=== PATIENT | female | born 1935 | race Caucasian/White ===

== ENCOUNTER → 2016-08-14 | Day surgery (SDC) | payer MEDICARE ==
[~2016-08-14] VITALS: Ht 157.5 cm; Wt 88.5 kg
[~2016-08-14] MED LIST: *RESP: ALBUTEROL 2.5 MG/3 ML NEB (PRN) PERIprocedural Use ONLY NEB ONE; AMLO5TAB2 PO; CHLORHEXIDINE GLUCONATE 2 % 1 PACK (2 CLOTHS) TOPICAL PRN; DO NOT ADM ANY ANTICOAGULANT DRUGS PRN; FAMOTIDINE 20 MG/2 ML VIAL ONE; HYDR25TA5 PO; INSULIN HUMAN REGULAR 1,000 UNITS/10 ML VIAL SQ PRN; LACTATED RINGER'S 1000 ML IV PRN; LIDOCAINE HCL 2% 50 ML VIAL ONE; LIDOCAINE VISCOUS 2% SOLN 15 ML UDC ONE; LOVA20TA PO; METOPROLOL TARTRATE 25 MG TAB PO PRN; ONDANSETRON HCL 4 MG/2 ML VIAL IV PUSH ONE; PHENYLEPH/NS 1000 MCG/10 ML SYR IV ONE; POVIDONE IODINE 5% (ANTISEPSIS KIT) 4 APPLICATIONS EACH NARE PRN; PROPOFOL 200 MG/20 ML AMP IV ONE; RESP: ALBUTEROL 2.5 MG/3 ML NEB (PRN) NEB; RESP: ALBUTEROL 2.5 MG/3 ML NEB (SCH) INH ONE; RESP: ALBUTEROL 2.5 MG/IPRATROPIUM 0.5 MG NEB (SCH) ONE; RESP: LIDOCAINE HCL 4% PF 5 ML NEB NEB ONE; RESP: LIDOCAINE HCL 4% PF 5 ML NEB ONE; SODIUM CHLORID 0.9% 500 ML IV PRN
[2016-08-14 09:53] VITALS: BP 173/90; PULSE 90; RESP 20; TEMP 98.4; O2SAT 92
--- NOTE | 2016-08-14 11:39 | MH ---
cc: PO GRANADOS JEFFREY DATE OF ADMISSION: 08/14/2016 CHIEF COMPLAINT: Persistent left upper lobe infiltrate. HISTORY OF PRESENT ILLNESS: This is an 81-year-old white female who has had a history for recurrent bronchitis and a persistent cough for three to four weeks associated with fever and malaise. He was initially treated with two courses of antibiotics with no significant relief. Subsequently she had was sent for a chest x-ray followed by a CT scan of the chest which was done on July 09, 2016. The CT chest demonstrated a 5.4 x 4 cm mass-like consolidation in the left upper lobe without associated adenopathy. There is an air bronchogram with suggestion of pneumonia but could not exclude malignancy. There was also had a 9 mm nodule in the superior segment of the right lower lobe and an 8 mm nodule in the left upper lobe as well. The patient states the congestion is persistent. She is not having any hemoptysis. She denied any night sweats but did lose some weight recently and she has had no reflux, nausea or vomiting. PAST MEDICAL HISTORY: 1. Hyperlipidemia. 2. Hypertension. 3. Arthritis of her extremities. 4. She has a history for colonoscopy and polypectomy. 5. History of diverticulosis. 6. History of bilateral carpal tunnel release more than 15 years ago. HABITS: The patient smoked one-pack per day for 15 years and then quit. Does not drink any alcohol. FAMILY HISTORY: Noncontributory. ALLERGIES: 1. THE PATIENT HAS ANGIOEDEMA FROM LISINOPRIL. 2. HIVES FROM BLACK COHOSH. MEDICATIONS: Her medications include: 1. Lovastatin 20 milligrams daily. 2. Amlodipine 5 milligrams daily. 3. Hydrochlorothiazide 25 milligrams a day. 4. A decongestant as needed. 5. Recently completed a course of Levaquin. REVIEW OF SYSTEMS: The patient is overweight. SHE has had some fatigue, fever and weight loss. No cataracts or glaucoma. No vertigo, hoarseness, no nosebleeds or urinary symptoms of frequency. No hives or eczema. She has wheezing, cough, shortness of breath. She has reflux symptoms. No diarrhea or constipation. Denies chest and jaw pain. No palpitations or leg swelling. She has some anxiety attacks and occasional headaches. No seizures. She has joint pains and muscle stiffness. Thee is easy bruising. Denies memory loss and numbness. She does have some skin rash. The other system review is negative. PHYSICAL EXAMINATION: GENERAL: This is a mildly overweight elderly female who is alert, anxious and mildly dyspneic at rest. VITAL SIGNS: Blood pressure is 138/80, pulse is 85, respirations 20, temperature 98, weight is 195, oxygen saturation is 90. HEAD, EYES, EARS, NOSE, THROAT: Head normocephalic. The pupils are reactive and equal. Tongue is moist. Throat is mildly injected. Ears have no inflammation. NECK: The neck is supple. No venous distention. Trachea is midline. CHEST: Distant breath sounds with wheezes throughout both lung rubio. HEART: The heart sounds are irregular. S1 and S2. No murmur. ABDOMEN: Abdomen is soft and benign. No masses. No organomegaly or tenderness. The bowel sounds are active. EXTREMITIES: Varicosities and minimal edema. Decreased peripheral pulses. NEUROLOGIC: Reflexes are 1+ with no gross motor deficits. Cranial nerves are grossly intact. RECTAL: Rectal exam is deferred. SKIN: No lesions are noted. IMPRESSION: 1. Persistent left upper lobe lung infiltrates, rule out obstructive pneumonitis versus neoplastic disease 2. He has COPD with chronic bronchitis. 3. Hypertension. 4. Hyperlipidemia. PLAN: The patient was advised to have a bronchoscopy to evaluate the left upper lobe and also advised to continue with the antibiotic therapy. She also was placed on a Ventolin HFA inhaler 2 puffs four times a day. She will be reevaluated after the bronchoscopy is completed at [facility]. The procedure and the potential risks of bleeding, pneumothorax, respiratory failure were all explained. Thank you for this consultation. MD TAMARA Funez/LALITHA /5:57 PM /11:36 AM
--- NOTE | 2016-08-14 12:00 | EKG ---
Date Performed: 08/14/2016 Time Performed: 10:16:07 PTAGE: 81 years EKG: BASELINE ARTIFACT PRESENT. ECTOPIC ATRIAL RHYTHM Versus Sinus rhythm with artifact ABNORMAL RHYTHM ECG Probably no significant change PREVIOUS TRACING : 04/09/2015 09.30 DOCTOR: Alejandro Briones Interpretating Date/Time 08/14/2016 11:58:51
[2016-08-14] MEDS: EPINEPHrine HCL (1:1000) 1 MG/ML VIAL ONE ×2 (12:26→12:31)
[2016-08-14] MEDS: SODIUM CHLORIDE 0.9% 20 ML VIAL ONE ×2 (12:27→12:31)
--- NOTE | 2016-08-14 13:46 | RADRPT ---
EXAM DATE/TIME: 08/14/2016 13:07 [facility] COMPARISON: No previous studies available for comparison. INDICATIONS : Shortness of breath. MEDICAL HISTORY : Hypertension. SURGICAL HISTORY : Hysterectomy. ENCOUNTER: Initial ACUITY: 1 day PAIN SCORE: 0/10 LOCATION: Bilateral chest FINDINGS: There are consolidative changes about the left hilum and minimal opacity left base. Minimal parenchy mal changes are seen on the right. There is no pneumothorax. CONCLUSION: Negative for pneumothorax. Devin Gonzalez MD FACR on August 14, 2016 at 13:42 Board Certified Radiologist. This report was verified electronically.
[2016-08-14 14:48] VITALS: BP 152/69; PULSE 97; RESP 20; TEMP 99; O2SAT 93
--- NOTE | 2016-08-15 20:09 | MP ---
cc: Alecia BLAIR M.D., JEFFREY D. DO DATE OF SURGERY 08/15/16 PROCEDURE Fiberoptic bronchoscopy with brushings, washings and lavage. PREOPERATIVE DIAGNOSIS Persistent left lung infiltrate. POSTOPERATIVE DIAGNOSIS Persistent left lung infiltrate. ANESTHESIA General SURGEON Dr. Jenifer Blair PROCEDURE AND FINDINGS The patient was intubated under general anesthesia following which the Olympus IT 180 bronchoscope was used to visualize bronchi. The scope was advanced through the endotracheal tube into the trachea. Trachea and felipe appeared normal. The scope was then advanced into the right mainstem and right upper lobe segmental bronchi. The bronchi demonstrated no gross endobronchial lesions. Next, the right middle and lower lobe segmental bronchi were visualized. These bronchi demonstrated mucoid secretions and mild endobronchitis but no endobronchial lesions were seen. Next, the left mainstem and left upper lobe segmental bronchi were visualized. These bronchi demonstrated no gross endobronchial lesions. There were mucoid secretions and mild endobronchitis. The left upper lobe with mucosal edema. Saline washings were done from here. Brushings were done for micro and cytology. There was no significant bleeding observed. Following this, the scope was advanced into the left lower lobe segmental bronchi which demonstrated no gross endobronchial lesions. Saline washings were done. The procedure was then terminated. The patient tolerated the procedure well. MD TAMARA Funez/ /12:50 PM /8:04 PM
== END | disposition home or self-care (01) ==
LOC: HSDC 08:50
DX: R91.8 Other nonspecific abnormal finding of lung field (principal); J42 Unspecified chronic bronchitis; I10 Essential (primary) hypertension; R06.02 Shortness of breath; E78.5 Hyperlipidemia, unspecified; M19.042 Primary osteoarthritis, left hand; M19.041 Primary osteoarthritis, right hand; Z87.891 Personal history of nicotine dependence; Z01.818 Encounter for other preprocedural examination
CPT/HCPCS: 00520; 31623; 71010; 87015; 87070; 87071; 87102; 87116; 87205; 87206; 88112; 88305; 88312; 93005; 94640; 94664; J0171; J2370; J2405; J7120; J7613

== ENCOUNTER → 2016-09-17 | Outpatient (CLI) | payer MEDICARE ==
[~2016-09-17] MED LIST changes: -*RESP: ALBUTEROL 2.5 MG/3 ML NEB (PRN) PERIprocedural Use ONLY NEB ONE; -CHLORHEXIDINE GLUCONATE 2 % 1 PACK (2 CLOTHS) TOPICAL PRN; -DO NOT ADM ANY ANTICOAGULANT DRUGS PRN; -FAMOTIDINE 20 MG/2 ML VIAL ONE; -INSULIN HUMAN REGULAR 1,000 UNITS/10 ML VIAL SQ PRN; -LACTATED RINGER'S 1000 ML IV PRN; -LIDOCAINE HCL 2% 50 ML VIAL ONE; -LIDOCAINE VISCOUS 2% SOLN 15 ML UDC ONE; -METOPROLOL TARTRATE 25 MG TAB PO PRN; -ONDANSETRON HCL 4 MG/2 ML VIAL IV PUSH ONE; -PHENYLEPH/NS 1000 MCG/10 ML SYR IV ONE; -POVIDONE IODINE 5% (ANTISEPSIS KIT) 4 APPLICATIONS EACH NARE PRN; -PROPOFOL 200 MG/20 ML AMP IV ONE; -RESP: ALBUTEROL 2.5 MG/3 ML NEB (PRN) NEB; -RESP: ALBUTEROL 2.5 MG/3 ML NEB (SCH) INH ONE; -RESP: ALBUTEROL 2.5 MG/IPRATROPIUM 0.5 MG NEB (SCH) ONE; -RESP: LIDOCAINE HCL 4% PF 5 ML NEB NEB ONE; -RESP: LIDOCAINE HCL 4% PF 5 ML NEB ONE; -SODIUM CHLORID 0.9% 500 ML IV PRN
[2016-09-17 17:12] LABS: HEMATOCRIT 48.2 % (35.0-46.0); MEAN CELL VOLUME 85.5 FL (80.0-100.0); MEAN CORPUSCULAR HEMOGLOBIN 27.6 PG (27.0-34.0); MEAN CORPUSCULAR HGB CONC 32.3 % (32.0-36.0); PLATELET COUNT 302 TH/MM3 (150-450); RED BLOOD COUNT 5.63 MIL/MM3 (4.00-5.30); RED CELL DISTRIBUTION WIDTH 14.6 % (11.6-17.2); REVIEW FLAG FINAL; WHITE BLOOD COUNT 13.9 TH/MM3 (4.0-11.0)
[2016-09-17 17:37] LABS: ANION GAP 15 MEQ/L (5-15); AST (GOT) 24 U/L (15-37); BICARBONATE 20.1 MEQ/L (21.0-32.0); BLOOD UREA NITROGEN 40 MG/DL (7-18); CHLORIDE 98 MEQ/L (98-107); GLOMERULAR FILTRATION RATE 35 ML/MIN (>89); POTASSIUM 3.7 MEQ/L (3.5-5.1); SODIUM (NA) 133 MEQ/L (136-145)
[2016-09-17 17:48] LABS: ALKALINE PHOSPHATASE 92 U/L (45-117); ALT (GPT) 23 U/L (10-53); TOTAL BILIRUBIN ADULT 0.7 MG/DL (0.2-1.0)
[2016-09-17 17:58] LABS: WESTERGREN SEDIMENTATION RATE 9 mm/hr (0-30)
== END ==
LOC: PLAB 10:52
DX: J18.9 Pneumonia, unspecified organism (principal); R05 Cough; R06.02 Shortness of breath
CPT/HCPCS: 36415; 80053; 84443; 84480; 85027; 85652

== ENCOUNTER 2016-10-10 12:07 | Inpatient (IN) | payer MEDICARE ==
[2016-10-10] VITALS (10 sets, daily range): BP systolic 109–111; BP diastolic 63; PULSE 109–118; RESP 19; TEMP 97.8; O2SAT 90–96
[~2016-10-10] VITALS: Ht 160 cm; Wt 82.1 kg
[2016-10-10] MEDS ORDERED: SODIUM CHLORIDE 0.9% FLUSH 10 ML FLUSH IVF PRN (12:15)
--- NOTE | 2016-10-10 12:28 | PD ---
HPI Chief Complaint: Respiratory Symptoms Time Seen by Provider: 12:12 Travel History International Travel<30 days: No Contact w/Intl Traveler<30days: No Traveled to known affect area: No History of Present Illness HPI Patient presents with complaints of shortness of breath for several months. Acutely worse in the last day or 2. Past medical history for hyperlipidemia hypertension and arthritis and recently COPD. Followed by pulmonology. Currently on prednisone and DuoNeb for her lung disease. Denies home oxygen use. Reports a recent lung infection which she completed antibiotics for. Denies any history of dysrhythmia. Denies history of heart failure. Denies any chest pain. Denies any urinary or bowel symptoms. Denies any nausea vomiting diarrhea or fever. PFSH Past Medical History Cancer: Yes (SKIN) Cardiovascular Problems: No Diabetes: No Diminished Hearing: No Endocrine: No Gastrointestinal Disorders: Yes (OCCASIONAL ACID INDIGESTION) Genitourinary: No Hepatitis: No Hiatal Hernia: No Hypertension: Yes Immune Disorder: No Musculoskeletal: No Neurologic: No Psychiatric: No Reproductive: No Respiratory: No Thyroid Disease: No ?: Not Past Surgical History Abdominal Surgery: No AICD: No Body Medical Devices: none Cardiac Surgery: No Ear Surgery: No Endocrine Surgery: No Eye Surgery: No Genitourinary Surgery: No Gynecologic Surgery: Yes (HYSTERECTOMY) Joint Replacement: No Oral Surgery: No Pacemaker: No Thoracic Surgery: No Other Surgery: Yes Social History Alcohol Use: No Tobacco Use: No Substance Use: No Allergies-Medications (Allergen,Severity, Reaction): Coded Allergies: No Known Allergies (Unverified , 10/10/16) Reported Meds & Prescriptions Reported Meds & Active Scripts Active Reported Duoneb (Ipratropium-Albuterol Neb) 0.5-2.5 Mg/3 Ml Neb 1 Nebule INH Q4HR NEB Prednisone 5 Mg Tab 5 Mg PO DAILY Hydrochlorothiazide 25 Mg Tab 25 Mg PO DAILY PRN Amlodipine (Amlodipine Besylate) 5 Mg Tab 5 Mg PO DAILY Lovastatin 20 Mg Tab 20 Mg PO HS Review of Systems General / Constitutional: No: Fever Eyes: No: Visual changes HENT: No: Headaches Cardiovascular: No: Chest Pain or Discomfort Respiratory: Positive: Shortness of Breath Gastrointestinal: No: Abdominal Pain Genitourinary: No: Dysuria Musculoskeletal: No: Pain Skin: No Rash Neurologic: No: Weakness Psychiatric: No: Depression Endocrine: No: Polydipsia Hematologic/Lymphatic: No: Easy Bruising Physical Exam Narrative GENERAL: Well-nourished, well-developed patient. SKIN: Focused skin assessment warm/dry. HEAD: Normocephalic. EYES: No scleral icterus. No injection or drainage. NECK: Supple, trachea midline. No JVD or lymphadenopathy. CARDIOVASCULAR: Irregular rate and rhythm without murmurs, gallops, or rubs. RESPIRATORY: Crackles in all rubio. No accessory muscle use. GASTROINTESTINAL: Abdomen soft, non-tender, nondistended. MUSCULOSKELETAL: No cyanosis, mild edema BACK: Nontender without obvious deformity. No CVA tenderness. Data Data Last Documented VS Vital Signs Date Time Temp Pulse Resp B/P Pulse Ox O2 Delivery O2 Flow Rate FiO2 10/10/16 14:31 118 19 111/63 91 Nasal Cannula 4 10/10/16 12:13 97.8 Orders Complete Blood Count With Diff (10/10/16 12:12) Comprehensive Metabolic Panel (10/10/16 12:12) B-Type Natriuretic Peptide (10/10/16 12:12) D-Dimer (10/10/16 12:12) Blood Culture (10/10/16 12:12) Iv Access Insert/Monitor (10/10/16 12:12) Electrocardiogram (10/10/16 12:12) Ecg Monitoring (10/10/16 12:12) Oximetry (10/10/16 12:12) Oxygen Administration (10/10/16 12:12) Chest, Single Ap (10/10/16 12:12) Sodium Chloride 0.9% Flush (Ns Flush) (10/10/16 12:15) Aspirin Ec (Ecotrin Ec) (10/10/16 12:30) Albuterol-Ipratropium Neb (Duoneb Neb) (10/10/16 12:45) Azithromycin Inj (Zithromax Inj) (10/10/16 14:00) Sodium Chlor 0.9% 250 Ml Inj (Ns 250 Ml (10/10/16 14:00) Elevate Head Of Bed (10/10/16 14:30) Methylprednisolone So Succ Inj (Solumedr (10/10/16 21:00) Albuterol-Ipratropium Neb (Duoneb Neb) (10/10/16 16:00) Albuterol-Ipratropium Neb (Duoneb Neb) (10/10/16 16:00) Resp Incentive Spirometry (10/10/16 14:30) Resp Acapella/Pep/Chest Vibra (10/10/16 14:30) Resp Ezpap/Pep Therapy (10/10/16 14:30) Urine Urea Random (10/10/16 14:30) Urine For Eosinophils (10/10/16 14:30) Osmolality,Serum (10/10/16 14:30) Basic Metabolic Panel (Bmp) (10/10/16 14:30) Osmolality, Urine (10/10/16 14:30) Sodium, Random Urine (10/10/16 14:30) Creatinine, Random Urine (10/10/16 14:30) Specimen To Be Collected PRN (10/10/16 14:30) Specimen To Be Collected PRN (10/10/16 14:30) Us Kidney/Renal/Bladder (10/10/16 ) Inpatient Certification (10/10/16 14:30) Dextrose 50% In Will (Vial) Inj (D50w (Vi (10/10/16 14:30) Insulin Human Reg Supp Scale (Novolin R (10/10/16 16:00) Echo 2d Comp With Doppler (10/10/16 ) Admit Order (Ed Use Only) (10/10/16 ) Vital Signs (Adult) Q4H (10/10/16 14:33) Activity Bed Rest (10/10/16 14:33) ^ Saline Lock (10/10/16 14:33) Resp Oxygen Paras C Titrat 1-4 L (10/10/16 ) Notify Dr: Other (10/10/16 14:33) Ondansetron Inj (Zofran Inj) (10/10/16 14:45) Acetaminophen (Tylenol) (10/10/16 14:45) Labs Laboratory Tests Test 10/10/16 12:18 White Blood Count 31.0 TH/MM3 Red Blood Count 5.75 MIL/MM3 Hemoglobin 16.0 GM/DL Hematocrit 47.3 % Mean Corpuscular Volume 82.3 FL Mean Corpuscular Hemoglobin 27.8 PG Mean Corpuscular Hemoglobin 33.8 % Concent Red Cell Distribution Width 13.6 % Platelet Count 294 TH/MM3 Mean Platelet Volume 9.8 FL Neutrophils (%) (Auto) 97.3 % Lymphocytes (%) (Auto) 1.6 % Monocytes (%) (Auto) 0.6 % Eosinophils (%) (Auto) 0.0 % Basophils (%) (Auto) 0.5 % Neutrophils # (Auto) 30.1 TH/MM3 Lymphocytes # (Auto) 0.5 TH/MM3 Monocytes # (Auto) 0.2 TH/MM3 Eosinophils # (Auto) 0.0 TH/MM3 Basophils # (Auto) 0.2 TH/MM3 CBC Comment AUTO DIFF Differential Total Cells 100 Counted Neutrophils % (Manual) 92 % Band Neutrophils % 3 % Lymphocytes % 2 % Monocytes % 2 % Neutrophils # (Manual) 29.8 TH/MM3 Metamyelocytes 1 % Differential Comment FINAL DIFF MANUAL Platelet Estimate NORMAL Platelet Morphology Comment NORMAL D-Dimer Quantitative (PE/DVT) 3.97 MG/L FEU Sodium Level 113 MEQ/L Potassium Level 4.7 MEQ/L Chloride Level 81 MEQ/L Carbon Dioxide Level 13.1 MEQ/L Anion Gap 19 MEQ/L Blood Urea Nitrogen 164 MG/DL Creatinine 3.10 MG/DL Estimat Glomerular Filtration 14 ML/MIN Rate Random Glucose 292 MG/DL Calcium Level 8.7 MG/DL Total Bilirubin 1.0 MG/DL Aspartate Amino Transf 28 U/L (AST/SGOT) Alanine Aminotransferase 40 U/L (ALT/SGPT) Alkaline Phosphatase 95 U/L B-Type Natriuretic Peptide 239 PG/ML Total Protein 8.0 GM/DL Albumin 2.9 GM/DL [facility] Medical Decision Making Medical Screen Exam Complete: Yes Emergency Medical Condition: Yes Differential Diagnosis COPD exacerbation, pneumonia, pneumothorax, pulmonary embolism, new onset A. fib , CHF Narrative Course Assessment and plan discussed with patient at bedside. EKG reveals atrial fibrillation with RVR, rate 118. EKG from revealed sinus rhythm. Hyponatremia noted, unknown chronicity. Leukocytosis noted, blood cultures pending, antibiotic started, renal failure noted, restricted fluid started Last 72 hours Impressions Chest X-Ray 10/10/16 1212 Signed Impressions: Service Date/Time: Monday, October 10, 2016 12:28 - CONCLUSION: 1. Bilateral perihilar airspace disease likely pulmonary edema. 2. Cardiomegaly. Van Aburto MD Physician Communication Physician Communication Spoke with Dr Birch who requested economic adviser involvement. Spoke with Dr Ayala who is in agreement will admit to the unit. Diagnosis Primary Impression: Hypoxia Additional Impressions: Atrial fibrillation Qualified Code: I48.91 - Atrial fibrillation, unspecified type Elevated blood sugar Pulmonary edema Qualified Code: J81.0 - Acute pulmonary edema Hyponatremia Leukocytosis Qualified Code: D72.829 - Leukocytosis, unspecified type Renal failure Qualified Code: N17.9 - Acute renal failure, unspecified acute renal failure type Admitting Information Admitting Physician Requests: Admit Kamari Miller MD Oct 10, 2016 12:28
[2016-10-10] MEDS ORDERED: IPRASOL INH (12:30)
[2016-10-10] MEDS ORDERED: PRED5TAB PO (12:30)
[2016-10-10] MEDS ORDERED: ASPIRIN EC 325 MG TABEC PO ONE (12:30)
[2016-10-10 12:37] LABS: AUTOMATED NEUTROPHIL # 30.1 TH/MM3 (1.8-7.7); BASOPHIL # 0.2 TH/MM3 (0-0.2); BASOPHIL % 0.5 % (0.0-2.0); HEMATOCRIT 47.3 % (35.0-46.0); LYMPH % 1.6 % (9.0-44.0); LYMPHOCYTE # 0.5 TH/MM3 (1.0-4.8); MEAN CELL VOLUME 82.3 FL (80.0-100.0); MEAN CORPUSCULAR HEMOGLOBIN 27.8 PG (27.0-34.0); MEAN CORPUSCULAR HGB CONC 33.8 % (32.0-36.0); MONO % 0.6 % (0.0-8.0); NEUT % 97.3 % (16.0-70.0); PLATELET COUNT 294 TH/MM3 (150-450); RED BLOOD COUNT 5.75 MIL/MM3 (4.00-5.30); RED CELL DISTRIBUTION WIDTH 13.6 % (11.6-17.2)
--- NOTE | 2016-10-10 12:37 | RADRPT ---
EXAM DATE/TIME: 10/10/2016 12:28 [facility] COMPARISON: CHEST SINGLE AP, August 14, 2016, 13:07. INDICATIONS : Short of breath MEDICAL HISTORY : Chronic obstructive pulmonary disease. Hypertension SURGICAL HISTORY : None. ENCOUNTER: Initial ACUITY: 2 months PAIN SCORE: 0/10 LOCATION: Bilateral chest FINDINGS: A single view of the chest demonstrates cardiomegaly bilateral perihilar airspace disease greater on the left. No pleural effusion seen. Osseous structures are intact. CONCLUSION: 1. Bilateral perihilar airspace disease likely pulmonary edema. 2. Cardiomegaly. Van Aburto MD on October 10, 2016 at 12:35 Board Certified Radiologist. This report was verified electronically.
[2016-10-10 12:38] LABS: HEMO FLAGS AUTO DIFF
[2016-10-10] MEDS ORDERED: RESP: ALBUTEROL 2.5 MG/IPRATROPIUM 0.5 MG NEB (SCH) NEB ONE (12:45)
[2016-10-10 13:04] LABS: ALKALINE PHOSPHATASE 95 U/L (45-117); ALT (GPT) 40 U/L (10-53); ANION GAP 19 MEQ/L (5-15); AST (GOT) 28 U/L (15-37); BICARBONATE 13.1 MEQ/L (21.0-32.0); BLOOD UREA NITROGEN 164 MG/DL (7-18); CHLORIDE 81 MEQ/L (98-107); GLOMERULAR FILTRATION RATE 14 ML/MIN (>89); POTASSIUM 4.7 MEQ/L (3.5-5.1)
[2016-10-10 13:11] LABS: SODIUM (NA) 113 MEQ/L (136-145)
[2016-10-10 13:30] LABS: BANDS 3 % (0-6); METAMYELOCYTES 1 % (0-1); NEUTROPHIL # MANUAL DIFF 29.8 TH/MM3 (1.8-7.7); PLATELET ESTIMATE SMEAR NORMAL (NORMAL); PLATELET MORPHOLOGY NORMAL (NORMAL); POLYS (SEG NEUTROPHILS) 92 % (16-70); SCAN/DIFF FINAL DIFF MANUAL; WBC DIFF SAMPLE 100
[2016-10-10] MEDS ORDERED: AZITHROMYCIN INJ 500 MG in SODIUM CHLOR 0.9% 250 ML INJ 250 ML IV ONE (14:00)
[2016-10-10] MEDS ORDERED: SODIUM CHLOR 0.9% 250 ML INJ 250 ML IV ONE (14:00)
[2016-10-10] MEDS ORDERED: DEXTROSE 50% IN WATER 50 ML VIAL(D50) IV PUSH PRN (14:30)
[2016-10-10] MEDS ORDERED: ACETAMINOPHEN 325 MG TAB PO PRN (14:45)
[2016-10-10] MEDS ORDERED: ONDANSETRON HCL 4 MG/2 ML VIAL IV PRN (14:45)
--- NOTE | 2016-10-10 15:06 | EKG ---
Date Performed: 10/10/2016 Time Performed: 12:04:50 PTAGE: 81 years EKG: ATRIAL FIBRILLATION WITH RAPID VENTRICULAR RESPONSE ST DEVIATION AND MODERATE T-WAVE ABNORM ALITY, CONSIDER LATERAL ISCHEMIA ABNORMAL ECG INTERPRETATION BASED ON A DEFAULT AGE OF 39 YEARS Andres red to previous from 08/14/16, atrial fibrillation and ST changes are new DOCTOR: Dane Chin Interpretating Date/Time 10/10/2016 15:04:35
[2016-10-10] MEDS ORDERED: RESP: ALBUTEROL 2.5 MG/IPRATROPIUM 0.5 MG NEB (PRN) INH (16:00)
[2016-10-10] MEDS: RESP: ALBUTEROL 2.5 MG/IPRATROPIUM 0.5 MG NEB (SCH) INH ×2 (16:06→19:38)
--- NOTE | 2016-10-10 16:39 | HHI.HP ---
[facility] Service Critical Care Medicine Primary Care Physician Jose A Romo, DO Admission Diagnosis hypoxia, atrial fibrillation Diagnosis: (1) Severe sepsis Diagnosis: Principal (2) Acute respiratory failure with hypoxia Diagnosis: Principal (3) Acute renal failure superimposed on stage 3 chronic kidney disease Diagnosis: Principal (4) Metabolic acidosis, increased anion gap Diagnosis: Principal (5) Leukocytosis Diagnosis: Principal (6) Hyponatremia Diagnosis: Principal (7) Diabetes type 2, uncontrolled Diagnosis: Principal (8) Elevated brain natriuretic peptide (BNP) level Diagnosis: Principal (9) Atrial fibrillation with RVR Diagnosis: Principal (10) Elevated d-dimer Diagnosis: Principal (11) Urinary tract infection Diagnosis: Principal Chief Complaint: Patient brought here by her niece because of worsening medical condition with weakness, shortness of breath, dyspnea. Travel History International Travel<30 Days: No Contact w/Intl Traveler <30 Da: No Traveled to Known Affected Are: No Sepsis Criteria SIRS Criteria (2 or more): Heart rate over 90, WBC > 34572, < 4000 or > 10% bands Sepsis Criteria (SIRS+source): Infect source susp/known Severe Sepsis (+one): Organ Dysfunction, Acute Oliguria/Renal Failure Multiple Organ Dysfunction Syn: Evidence -2 organs failing Criteria Outcome: Meets severe sepsis criteria History of Present Illness 81-year-old female with known history of hypertension, hyperlipidemia , diabetes, arthritis, chronic obstructive pulmonary disease, recent left upper lobe infiltrate who presented to the hospital because of weakness, falls, shortness of breath and dyspnea. The patient herself is in critical condition and acute respiratory failure with BiPAP at this time. It was difficult to obtain information from the patient, information was limited due to her clinical condition. Upon review medical records, discussion with ER physician, nursing staff and patient is being worked up in outpatient setting by Dr. Tan mckay for chronic left lung infiltrate. Patient did undergo bronchoscopy on in which did not indicate any malignant cells. Does show scattered inflammatory cells. Patient indicates that she has been getting short of breath more recently. She has been falling more frequently. She does live at home by herself, family does not live with her however she does have a niece that lives nearby and checks on her frequently. Patient states that she fell this morning in the bath and had been short of breath and weak since then. The niece checked on her and because of her condition she brought her to the hospital for evaluation. The patient was found to have severe multiple medical issues. With acute respiratory failure, new onset atrial fibrillation with RVR , acute renal failure, severe metabolic acidosis with increased anion gap, possible congestive heart failure. Without emergent/critical care management at this time patient would likely not survive. Patient will be admitted to ICU for continued care and further workup to evaluate for possible etiology of her symptoms and clinical findings Review of Systems Constitutional: DENIES: Diaphoretic episodes, Fatigue, Fever, Weight gain, Weight loss, Chills, Dizziness, Change in appetite, Night Sweats Eyes: DENIES: Blurred vision, Diplopia, Eye inflammation, Eye pain, Vision loss , Double Vision Ears, nose, mouth, throat: COMPLAINS OF: Hearing loss, Vertigo, DENIES: Nasal discharge, Throat pain, Ear Pain, Running Nose, Sinus Pain Respiratory: COMPLAINS OF: Cough, Shortness of breath, DENIES: Apneas, Snoring , Wheezing, Hemoptysis, Sputum production Cardiovascular: COMPLAINS OF: Lower Extremity Edema, DENIES: Chest pain, Palpitations, Syncope, Dyspnea on Exertion, Orthopnea Gastrointestinal: DENIES: Abdominal pain, Black stools, Bloody stools, Constipation, Diarrhea, Nausea, Vomiting, Difficulty Swallowing, Anorexia Neurologic: COMPLAINS OF: Poor Balance, DENIES: Abnormal gait, Headache, Localized weakness, Paresthesias, Seizures, Speech Problems, Tremor Past Family Social History Allergies: Coded Allergies: No Known Allergies (Unverified , 10/10/16) Past Medical History Hypertension Hyperlipidemia Diabetes, no longer treated Chronic left lung infiltrate Arthritis History of diverticulosis Past Surgical History Hysterectomy Recent bronchoscopy Colonoscopy with polypectomy Bilateral carpal tunnel release Reported Medications Reported Meds & Active Scripts Active Reported Duoneb (Ipratropium-Albuterol Neb) 0.5-2.5 Mg/3 Ml Neb 1 Nebule INH Q4HR NEB Prednisone 5 Mg Tab 5 Mg PO DAILY Hydrochlorothiazide 25 Mg Tab 25 Mg PO DAILY PRN Amlodipine (Amlodipine Besylate) 5 Mg Tab 5 Mg PO DAILY Lovastatin 20 Mg Tab 20 Mg PO HS Family History Reviewed and unremarkable, patient denies any history of heart disease, lung disease, diabetes, cancer, seizures, strokes Social History Patient quit smoking 15 years ago, patient denies any alcohol or illicit drugs Physical Exam Vital Signs Vital Signs Date Time Temp Pulse Resp B/P Pulse Ox O2 Delivery O2 Flow Rate FiO2 10/10/16 15:04 96 60 10/10/16 14:31 118 19 111/63 91 Nasal Cannula 4 10/10/16 12:52 90 Nasal Cannula 5.00 10/10/16 12:15 19 92 Nasal Cannula 2 10/10/16 12:15 109 19 92 Nasal Cannula 2 10/10/16 12:15 92 Nasal Cannula 2 10/10/16 12:13 97.8 109 19 109/63 92 Physical Exam GENERAL: Frail, elderly patient critically ill and in acute respiratory distress. alert and orientated HEENT: Head is normocephalic without any lesions or masses noted. Facial features are symmetric. Eyes: Pupils equal round reactive to light. Extraocular muscles are intact. Conjunctivae were clear. Unable to examine oropharyngeal secondary to BiPAP mask NECK: Supple without any masses. Trachea midline no deviation. No JVD, no bruits are appreciated CARDIAC: Regular rhythm, regular rate. S1/S2 are heard. No murmurs gallops or rubs. LUNGS: Crackles noted bilateral bases. No wheeze, rhonchi. No use of accessory muscles on inspiration or expiration. ABDOMEN: Soft, nontender. Nondistended. Bowel sounds heard in all 4 quadrants. No organomegaly or masses. Negative rebound, negative guarding EXTREMITIES: 1+ pitting edema noted bilateral lower extremity, pulses are equal bilaterally. No cyanosis or clubbing NEUROLOGY: Mood and affect appear appropriate. Cranial nerves II through XII grossly intact. Muscle strength 5/5 in upper and lower extremities bilaterally. Deep tendon reflexes are 2+ in upper and lower extremities bilaterally. Laboratory Laboratory Tests Test 10/10/16 12:18 White Blood Count 31.0 Red Blood Count 5.75 Hemoglobin 16.0 Hematocrit 47.3 Mean Corpuscular Volume 82.3 Mean Corpuscular Hemoglobin 27.8 Mean Corpuscular Hemoglobin 33.8 Concent Red Cell Distribution Width 13.6 Platelet Count 294 Mean Platelet Volume 9.8 Neutrophils (%) (Auto) 97.3 Lymphocytes (%) (Auto) 1.6 Monocytes (%) (Auto) 0.6 Eosinophils (%) (Auto) 0.0 Basophils (%) (Auto) 0.5 Neutrophils # (Auto) 30.1 Lymphocytes # (Auto) 0.5 Monocytes # (Auto) 0.2 Eosinophils # (Auto) 0.0 Basophils # (Auto) 0.2 CBC Comment AUTO DIFF Differential Total Cells 100 Counted Neutrophils % (Manual) 92 Band Neutrophils % 3 Lymphocytes % 2 Monocytes % 2 Neutrophils # (Manual) 29.8 Metamyelocytes 1 Differential Comment FINAL DIFF MANUAL Platelet Estimate NORMAL Platelet Morphology Comment NORMAL D-Dimer Quantitative (PE/DVT) 3.97 Sodium Level 113 Potassium Level 4.7 Chloride Level 81 Carbon Dioxide Level 13.1 Anion Gap 19 Blood Urea Nitrogen 164 Creatinine 3.10 Estimat Glomerular Filtration 14 Rate Random Glucose 292 Calcium Level 8.7 Total Bilirubin 1.0 Aspartate Amino Transf 28 (AST/SGOT) Alanine Aminotransferase 40 (ALT/SGPT) Alkaline Phosphatase 95 B-Type Natriuretic Peptide 239 Total Protein 8.0 Albumin 2.9 Date/Time Procedure Status Source Growth 10/10/16 12:20 Aerobic Blood Culture Received Blood Peripheral Pending 10/10/16 12:20 Anaerobic Blood Culture Received Blood Peripheral Pending Result Diagram: 10/10/16 1218 10/10/16 1620 Imaging Last Impressions Chest X-Ray 10/10/16 1212 Signed Impressions: Service Date/Time: Monday, October 10, 2016 12:28 - CONCLUSION: 1. Bilateral perihilar airspace disease likely pulmonary edema. 2. Cardiomegaly. Van Aburto MD Septic Shock Reassessment Heart: Irregular Lungs: Crackles Skin: Cold, Moist Peripheral Pulses: Bounding Right Radial Bounding Left Radial Assessment and Plan Problem List: (1) Severe sepsis ICD Code: A41.9 Status: Acute (2) Acute respiratory failure with hypoxia ICD Code: J96.01 Status: Acute (3) Acute renal failure superimposed on stage 3 chronic kidney disease ICD Code: N17.9 Status: Acute (4) Metabolic acidosis, increased anion gap ICD Code: E87.2 Status: Acute (5) Leukocytosis ICD Code: D72.829 Status: Acute (6) Hyponatremia ICD Code: E87.1 Status: Acute (7) Atrial fibrillation with RVR ICD Code: I48.91 Status: Acute (8) Diabetes type 2, uncontrolled ICD Code: E11.65 Status: Acute (9) Urinary tract infection ICD Code: N39.0 Status: Acute (10) Elevated d-dimer ICD Code: R79.89 Status: Acute Assessment and Plan NEUROLOGY Currently stable at this time Continue monitor neurological function, Patient maintaining airway at this time, if neurological function worsens will need to intubate for airway support PULMONOLOGY Acute hypoxic respiratory failure Chronic obstructive pulmonary disease, possible exacerbation Chronic left infiltrate Continue BiPAP at this time 12/5/60% Obtain stat arterial blood gas Duo nebs every 4 hours and every 2 hours as needed Solu-Medrol 60 mg every 6 hours Obtain sputum culture Incentive spirometry/EZ Pap/Acapella CARDIOLOGY Congestive heart failure, new onset: Chest x-ray with pulmonary congestion, BMP elevation Atrial fibrillation with RVR, new onset obtain echocardiogram to evaluate cardiac function We'll need to check cardiac enzymes rule out any underlying cardiac ischemia, myocardial infarction, acute coronary syndrome Defer diuresis at this time until acute coronary syndrome can be ruled out and cardiac function evaluated GASTROENTEROLOGY Diabetic/renal diet Start Protonix for GI protection, with administration of Solu-Medrol RENAL Acute renal failure superimposed on chronic kidney disease stage III, unknown etiology at this time Metabolic acidosis with increased anion gap, could be secondary to acute renal failure, uncontrolled diabetes, lactic acid acidosis Severe hyponatremia Insert Son to evaluate urinary output, maintain Son to have strict input/ output Obtain renal/bladder ultrasound Monitor renal function, avoid nephrotoxins Continue cautious IV hydration Check serum/urine osmolality, urine sodium, TSH, cortisol level Monitor sodium closely INFECTIOUS DISEASE Severe sepsis Urinary tract infection Chronic lung infiltrate Leukocytosis Start Rocephin and Zithromax, Monitor CBC Continue follow blood cultures Check lactic acid level HEMATOLOGY Hemoconcentration, polycythemia: Likely secondary to dehydration Elevated d-dimer Continue monitor CBC Unable to perform contrasted CT studies due to acute renal failure May need to obtain VQ scan if condition allows We'll start anticoagulation with therapeutic Lovenox ENDOCRINOLOGY Diabetes, untreated Check hemoglobin A1c, beta hydroxybutyrate Accu-Cheks with sliding scale insulin PROPHYLAXIS DVT prevention with sequential compression devices, subcutaneous Lovenox GI protection with Protonix LINES Peripheral IVs Critical care time 60 minutes excluding procedures. Patient with severe life- threatening condition, without critical care management patient would not likely survive. Attestation Attending Attestation: I evaluated the patient today with Julian Freire. Together we discussed the patient's condition and formulated a joint care plan. I have reviewed and agree with the above documentation unless otherwise stated below. I personally saw and examined the patient, and my findings are below. In Brief: Chronically ill 81yF who has been declining since April of this year with recurrent pneumonias. patient presented with shortness of breath and weakness. no history of cardiac disease. niece who is only family states that a few days ago, she had acute episode of chest tightness that she did not seek medical attention for. currently denies chest pain, DAVIS, orthopnea. niece says patient supposed to take a "water pill" prescribed by her PCP but has not been taking it recently for an unknown reason. presents to ER with severe metabolic derrangements including life-threatening hyponatremia of 113, elevated BNP > 200 , trop 0.08, ckmb 15, wbc 31k, lactate 2.7. She received 1 L fluid bolus in ER. repeat labs with slight increase in sodium to 117 and improvement of lactate to 2.1. despite this, respiratory status worsened and now on 60% fio2 BiPAP 12/5 and slightly more tachypneic. I talked with patient and niece. patient requests niece be medical decision maker. patient asks to be DNR, but wants to think about DNI and for now would want intubation. On my evaluation, patient is frail, elderly, in distress. on bipap. tachypneic. in afib by tele, tachycardic and irregular. 1+ pitting edema of LEs. I performed bedside critical care ultrasound which was technically limited, but did demonstrate completely collapsable IVC with respiratory variation and what appears to be preserved RV function. LV difficult to visualize. Assessment: 81yF in acute hypoxic respiratory failure and severe metabolic acidosis as well as severe life-threatening hyponatremia. Evidence of coronary ischemia could be demand type II or from possible subacute infarct if she had ACS days ago. Do not think we have active type I NSTEMI given lack of acute clinical symptoms. will anticoagulate empirically for afib/AMI/and even possible PE as a cause. given acute kidney injury, cannot CT pulmonary angiogram. FREDY is prerenal with FENA of 0.2%, but could be heart failure or sepsis. lactate is clearing with gentle fluid administration, so we will continue that for now, though if she does have an element of heart failure, this could worsen. will consider placing central access and following CVP as an additional data point. Plan: Acute hypoxic respiratory failure -- continue BiPAP -- serial abg -- may require intubation Possible Community Acquired Pneumonia -- history of multiple recent antibiotics, but family is unsure of which ones. will broaden our coverage to Vanc/Cefepime/Levaquin to cover pseudomonas in this COPD patient as well as more resistant bacteria given recent exposure to abx -- sputum culture -- blood cultures Possible Severe Sepsis -- abx as above -- gentle fluid hydration d5NS @ 50cc/hr -- trend lactates Intravascular hypovolemia -- d5ns @ 50cc/hr Possible Congestive Heart Failure Exacerbation, unknown type -- trend BNP -- will give gentle fluid hydration for possible sepsis. if clinically declining , may be forced to change our fluid strategy -- trend CVP -- f/u 2d echo Possible Acute coronary syndrome -- given sepsis, will not be able to safely control HR -- heparin drip -- trend troponins -- too unstable and high risk for any coronary intervention at this point. will manage conservatively Possible PE -- anticoagulation with heparin drip. -- unable to obtain CT PE protocol. Atrial Fibrillation with Rapid Ventricular Response -- cannot rate control given sepsis and concern for early hemodynamic instability -- trend troponins. -- anticoagulate. Lactic Acidosis Anion-gap metabolic acidosis -- trend lactates -- unclear if this is cardiogenic or septic, but more data points to sepsis at this point. -- gentle fluid hydration as above. Acute Kidney Injury -- severe, may require renal replacement therapy, but unlikely to be a good dialysis candidate given overall clinical condition -- FENa 0.2%. prerenal -- ivf as above -- daily bmp Severe Hyperglycemia -- q4h SSI -- provide dextrose source. -- not DKA as patient has no keturia and essentially negative beta-hydroxy- buterate. SCDs, protonix NPO while on BiPAP with high concern for respiratory failure. Overall Impression: Frail elderly female with a declining course over last 6 months now in multiorgan system failure. Unlikely to have favorable outcome. I have updated the family at length. Very critically ill This patient remains critically ill with one or more organ systems which are or may become a threat to life. I have spent in excess of 92 minutes discontinuously in the care and management of this patient. This time is exclusive of procedures, and includes, but is not limited to, evaluation of the patient, review of the medical record, discussions with family, consultants, nursing staff, or respiratory therapy, and documentation in the medical record. This time was in time from Mr. Freire's time. Problem Qualifiers (1) Leukocytosis: Qualified Code: D72.829 - Leukocytosis, unspecified type Vladislav Valencia Oct 10, 2016 16:39 Reymundo Hinojosa MD Oct 10, 2016 20:34
[2016-10-10 16:40] LABS: BLOOD GAS BASE EXCESS -11.8 mmol/L (-2-2); BLOOD GAS CARBOXYHEMOGLOBIN 1.1 % (0-4); BLOOD GAS HCO3 13 mmol/L (22-26); BLOOD GAS METHEMOGLOBIN 1.3 % (0-2); BLOOD GAS O2 HGB SATURATION 95 % (90-100); BLOOD GAS OXYGEN CONTENT 21.2 Vol % (12.0-20.0); BLOOD GAS PCO2 23 mmHg (38-42); BLOOD GAS PO2 95 mmHg (61-120); BLOOD GAS TOTAL HGB 15.8 G/DL (12.0-16.0)
[2016-10-10 16:41] LABS: CRITICAL VALUE YES; DRAW SITE RT RADIAL; FIO2 60 %; NUMBER OF ARTERIAL PUNCTURES 1; OXYGEN DEVICE BIPAP; STAT YES; ULNAR PULSE PRESENT; VENT SETTINGS IPAP 12/EPAP 5
[2016-10-10 16:51] LABS: BLOOD, URINE NEG (NEG); GLUCOSE,URINE NEG (NEG); KETONE, URINE NEG (NEG); NITRITE,URINE NEG (NEG); PH, URINE 5.5 (5.0-8.5)
[2016-10-10 16:59] LABS: METHOD OF COLLECTION CLEAN CATCH; URINE COLOR YELLOW (YELLW/STRAW)
[2016-10-10 16:59] LABS: CREATINE KINASE 163 U/L (26-192)
[2016-10-10 17:00] LABS: COMMENT (UR) CULT NOT INDICATED; CULTURE IF INDICATED CULT NOT INDICATED; RBC, URINE 0-3 /hpf (0-3); SQUAMOUS EPITHELIAL CELL URINE > 8 /hpf (0-5); WBC, URINE 0-2 /hpf (0-5)
[2016-10-10] MEDS: PANTOPRAZOLE SOD 40 MG DELAYED RELEASE TAB PO SCH (17:00)
[2016-10-10] MEDS ORDERED: cefTRIAXone INJ 1,000 MG in SODIUM CHLORIDE 0.9% INJ 100 ML IV SCH (17:00)
[2016-10-10 17:06] LABS: BICARBONATE 15.7 MEQ/L (21.0-32.0); POTASSIUM 4.2 MEQ/L (3.5-5.1)
[2016-10-10] MEDS ORDERED: ENOXAPARIN SODIUM 40 MG/0.4 ML SYRINGE SQ SCH (18:00)
[2016-10-10 18:35] LABS: LACTIC ACID GHOST NOT REPORTABLE
--- NOTE | 2016-10-10 18:37 | RADRPT ---
EXAM DATE/TIME: 10/10/2016 16:53 [facility] COMPARISON: No previous studies available for comparison. INDICATIONS : Increased BUN/Creatinine. MEDICAL HISTORY : Hypertension. Skin cancer. SURGICAL HISTORY : Hysterectomy. ENCOUNTER: Initial ACUITY: 1 day PAIN SCORE: 04/14 LOCATION: Bilateral flank MEASUREMENTS: RIGHT KIDNEY: 11.2 x 4.1 x 4.8 cm LEFT KIDNEY: 11.8 x 5.2 x 5.0 cm FINDINGS: RIGHT KIDNEY: The right kidney is normal in size with atrophic change with cortical thinning and abnormal increased echogenicity compared to the liver. There are multiple cystic structures noted measuring 2.2 x 2.1 x 2.1 cm in the central kidney, 2.1 x 2.1 x 2.1 cm in the lower pole and 1.8 x 1.6 x 1.3 cm in the low er pole. LEFT KIDNEY: The left kidney is normal in size with atrophic changes with cortical thinning and abnormal increased echogenicity. Multiple cystic structures are identified as well measuring 1.6 x 1.4 x 1.1 cm in the central kidney and a 1.3 x 1.1 x 1 cm in the lower pole. There is a second small cystic structure in the mid kidney measuring 8 x 8 x 7 mm. BLADDER: A Son catheter is present in the bladder. CONCLUSION: 1. No evidence of hydronephrosis. 2. Increased echogenicity and cortical thinning consistent with medical renal disease. 3. Multiple small bilateral cystic structures. Mayco Diaz MD on October 10, 2016 at 18:33 Board Certified Radiologist. This report was verified electronically.
[2016-10-10] MEDS ORDERED: VANCOMYCIN INJ 1,250 MG in SODIUM CHLOR 0.9% 250 ML INJ 250 ML IV ONE (20:00)
[2016-10-10] MEDS ORDERED: TERBUTALINE INJ 1 MG/ML AMP SQ PRN (20:00)
[2016-10-10 20:02] LABS: BLOOD GAS PCO2 21 mmHg (38-42); BLOOD GAS PO2 89 mmHg (61-120)
[2016-10-10 20:03] LABS: BLOOD GAS BASE EXCESS -11.5 mmol/L (-2-2); BLOOD GAS CARBOXYHEMOGLOBIN 1.2 % (0-4); BLOOD GAS HCO3 13 mmol/L (22-26); BLOOD GAS METHEMOGLOBIN 1.1 % (0-2); BLOOD GAS O2 HGB SATURATION 95 % (90-100); BLOOD GAS OXYGEN CONTENT 21.1 Vol % (12.0-20.0); BLOOD GAS TOTAL HGB 15.8 G/DL (12.0-16.0); CRITICAL VALUE YES; DRAW SITE RT BRACHIAL; FIO2 60 %; NUMBER OF ARTERIAL PUNCTURES 1; OXYGEN DEVICE BIPAP; STAT NO; VENT SETTINGS 12IPAP/5EPAP
[2016-10-10] MEDS ORDERED: DEXT 5%-NACL 0.9% 1000 ML INJ 1,000 ML IV SCH (20:15)
[2016-10-10] MEDS ORDERED: Vancomycin Consult Pharmacy 1 EA OTHER SCH (21:00)
--- NOTE | 2016-10-10 21:44 | PD.PROCEDR ---
Procedure Note Procedure Procedure: Arterial Line Placement Left radial arterial line Diagnosis: Severe sepsis, atrial fibrillation with rapid ventricular response Indications: [id number]-[id number] hemodynamic monitoring Consent: Written consent was obtained Description of the Procedure: The left wrist was prepped and draped sterilely. 1% lidocaine was used for local anesthesia. The pulse was located and a needle was advanced into the artery. A 20 gauge, 12 cm catheter was advanced into the artery using a modified Seldinger technique. The catheter was sutured to the skin and a sterile dressing was applied. The catheter was connected to a pressure transducer and an arterial waveform was noted. There were no immediate complications noted. There was minimal EBL. Ultrasound guidance: Ultrasound guidance was used to identify the left radial artery. The anatomy of the left wrist is normal. Under direct visualization the needle and guidewire advanced into the artery. I personally performed the procedure. Reymundo Hinojosa MD Oct 10, 2016 21:44
[2016-10-10] MEDS ORDERED: ALBUMIN HUMAN 5% 12.5 GM/250 ML BOTTLE IV ONE (21:45)
--- NOTE | 2016-10-10 21:45 | PD.PROCEDR ---
Procedure Note Procedure Central Line Procedure Note Left axillary central venous catheter Diagnosis: Severe sepsis Indications: Need for central pressure monitoring Consent: Written consent was obtained Anesthesia: Lidocaine locally Description of the Procedure: The patient was placed in the supine, mild- Trendelenburg position. The area was prepped and draped sterilely. A 19g needle was inserted under negative pressure aspiration and dark venous blood was obtained. A guidewire was inserted easily without resistance. A small incision was made using a #11 blade. Using a modified Seldinger technique, the dilator and 7 Macanese, 20 cm catheter were advanced over the guidewire without resistance. All ports were aspirated and flushed, and had brisk blood return. The line was secured at the skin using 2-0 silk interrupted sutures. A Biopatch and Transparent sterile dressing were applied. There were no immediate complications noted. There was minimal EBL. The patient tolerated the procedure well. Ultrasound Guidance: Ultrasound guidance was used to identify the left axillary vein. The vascular anatomy of the left axilla was normal. The vessel was cannulated under direct, real-time ultrasound visualization. After placement of the guidewire, confirmation of the guidewire in the lumen of the vessel was made using ultrasound visualization, before dilation of the tract. A Chest x-ray has been ordered. I personally performed the procedure. Reymundo Hinojosa MD Oct 10, 2016 21:45
--- NOTE | 2016-10-10 21:45 | EKG ---
Date Performed: 10/10/2016 Time Performed: 16:27:42 PTAGE: 81 years EKG: ATRIAL FIBRILLATION WITH RAPID VENTRICULAR RESPONSE NONSPECIFIC ST & T-WAVE ABNORMALITY ABN ORMAL ECG PREVIOUS TRACING : 10/10/2016 12.04 Compared to prior tracing no significant change DOCTOR: Dane Chin Interpretating Date/Time 10/10/2016 21:44:34
[2016-10-10 21:50] LABS: HEMATOCRIT 45.2 % (35.0-46.0); MEAN CELL VOLUME 83.4 FL (80.0-100.0); MEAN CORPUSCULAR HEMOGLOBIN 28.2 PG (27.0-34.0); MEAN CORPUSCULAR HGB CONC 33.9 % (32.0-36.0); PLATELET COUNT 257 TH/MM3 (150-450); RED BLOOD COUNT 5.42 MIL/MM3 (4.00-5.30); RED CELL DISTRIBUTION WIDTH 13.4 % (11.6-17.2); REVIEW FLAG FINAL; WHITE BLOOD COUNT 24.2 TH/MM3 (4.0-11.0)
[2016-10-10 22:01] LABS: APTT (PATIENT) 28.7 SEC (24.3-30.1); PROTHROMBIN TIME - PATIENT 11.1 SEC (9.8-11.6)
[2016-10-10 22:02] LABS: ANION GAP 16 MEQ/L (5-15); BICARBONATE 15.7 MEQ/L (21.0-32.0); CHLORIDE 86 MEQ/L (98-107); POTASSIUM 4.3 MEQ/L (3.5-5.1)
--- NOTE | 2016-10-10 22:06 | RADRPT ---
EXAM DATE/TIME: 10/10/2016 21:48 [facility] COMPARISON: CHEST SINGLE AP, October 10, 2016, 12:28. INDICATIONS : Status post central line placement. MEDICAL HISTORY : Hypertension. SURGICAL HISTORY : Hysterectomy. ENCOUNTER: Initial ACUITY: 1 day PAIN SCORE: 0/10 LOCATION: Bilateral chest FINDINGS: A single AP supine portable view the chest was obtained and demonstrates interval placement of a righ t-subclavian central venous line with the tip projected over the right lung apex in the region of the subclavian vein. Hazy opacity is present in the perihilar regions and lung bases left greater than r ight. This is not significantly changed. The heart size is at the upper limits of normal. The bony th orax remains intact. Overlying electrocardiogram leads and oxygen tubing. CONCLUSION: 1. Interval placement of right subclavian central venous line with the tip projected over the right l regulo apex in the region of the subclavian vein. 2. Bilateral airspace disease remains. 3. No pneumothorax. Mayco Diaz MD on October 10, 2016 at 22:02 Board Certified Radiologist. This report was verified electronically.
[2016-10-10 22:10] LABS: CREATINE KINASE 122 U/L (26-192); GLOMERULAR FILTRATION RATE 16 ML/MIN (>89)
[2016-10-10 22:16] LABS: BLOOD UREA NITROGEN 159 MG/DL (7-18)
[2016-10-10 22:22] LABS: SODIUM (NA) 118 MEQ/L (136-145)
[2016-10-10] MEDS: LEVOFLOXACIN 750 MG PREMIX INJ 150 ML IV SCH (22:31)
[2016-10-10] MEDS: CEFEPIME INJ 1,000 MG in SODIUM CHLORIDE 0.9% INJ 100 ML IV SCH (22:31)
[2016-10-10] MEDS: methylPREDNISolone SOD SUCC 125 MG/2 ML VIAL IV PUSH SCH (22:32)
[2016-10-10 22:47] LABS: CKMB 12.7 NG/ML (0.5-3.6)
[2016-10-10] MEDS: PHENYLEPHRINE INJ 40 MG in DEXTROSE 5% IN WATE 500 ML INJ 496 ML IV SCH ×2 (22:51)
[2016-10-10] MEDS: HEPARIN-D5W INJ 250 ML IV SCH (23:05)
[2016-10-10] MEDS: INSULIN NovoLIN REGULAR SUPPLEMENTAL SCALE SQ SCH (23:25)
[2016-10-11] VITALS (34 sets, daily range): BP systolic 92–140; BP diastolic 44–92; PULSE 98–122; RESP 10–49; TEMP 97–98.9; O2SAT 90–97
[2016-10-11] MEDS: RESP: ALBUTEROL 2.5 MG/IPRATROPIUM 0.5 MG NEB (SCH) INH ×7 (00:09→23:37)
[2016-10-11 04:16] LABS: BICARBONATE 17.1 MEQ/L (21.0-32.0); POTASSIUM 4.3 MEQ/L (3.5-5.1)
[2016-10-11] MEDS: INSULIN NovoLIN REGULAR SUPPLEMENTAL SCALE SQ SCH ×6 (04:20→22:09)
[2016-10-11 04:51] LABS: APTT (PATIENT) 56.7 SEC (24.3-30.1)
[2016-10-11 05:49] LABS: BLOOD GAS BASE EXCESS -10.7 mmol/L (-2-2); BLOOD GAS CARBOXYHEMOGLOBIN 1.3 % (0-4); BLOOD GAS HCO3 14 mmol/L (22-26); BLOOD GAS METHEMOGLOBIN 1.2 % (0-2); BLOOD GAS O2 HGB SATURATION 92 % (90-100); BLOOD GAS OXYGEN CONTENT 18.7 Vol % (12.0-20.0); BLOOD GAS PCO2 23 mmHg (38-42); BLOOD GAS PO2 74 mmHg (61-120); BLOOD GAS TOTAL HGB 14.4 G/DL (12.0-16.0)
[2016-10-11 05:50] LABS: CRITICAL VALUE YES; DRAW SITE ART LINE; FIO2 65 %; OXYGEN DEVICE BIPAP; STAT NO; VENT SETTINGS 12IPAP/5EPAP
[2016-10-11] MEDS ORDERED: SODIUM BICARBONATE 8.4% INJ 50 MEQ/50 ML SYR IV PUSH ONE (06:15)
[2016-10-11] MEDS ORDERED: DEXTROSE 50% IN WATER 50 ML VIAL(D50) IV PUSH PRN (06:15)
--- NOTE | 2016-10-11 06:28 | HHI.CCPN ---
Subjective Remarks/Hospital Course Hospital Course: 81-year-old female with known history of hypertension, hyperlipidemia , diabetes, arthritis, chronic obstructive pulmonary disease, recent left upper lobe infiltrate who presented to the hospital because of weakness, falls, shortness of breath and dyspnea. The patient herself is in critical condition and acute respiratory failure with BiPAP at this time. It was difficult to obtain information from the patient, information was limited due to her clinical condition. Upon review medical records, discussion with ER physician, nursing staff and patient is being worked up in outpatient setting by Dr. Tan mckay for chronic left lung infiltrate. Patient did undergo bronchoscopy on in which did not indicate any malignant cells. Does show scattered inflammatory cells. Patient indicates that she has been getting short of breath more recently. She has been falling more frequently. She does live at home by herself, family does not live with her however she does have a niece that lives nearby and checks on her frequently. Patient states that she fell this morning in the bath and had been short of breath and weak since then. The niece checked on her and because of her condition she brought her to the hospital for evaluation. The patient was found to have severe multiple medical issues. With acute respiratory failure, new onset atrial fibrillation with RVR , acute renal failure, severe metabolic acidosis with increased anion gap, possible congestive heart failure. Without emergent/critical care management at this time patient would likely not survive. Patient will be admitted to ICU for continued care and further workup to evaluate for possible etiology of her symptoms and clinical findings Subjective: 10/11: worsening fio2 overnight. required initiation of vasopressors. now in shock. Cr slightly improved. overall decline. remains on BiPAP. Objective Vital Signs Date Time Temp Pulse Resp B/P Pulse Ox O2 Delivery O2 Flow Rate FiO2 10/11/16 05:00 98 15 112/50 93 10/11/16 04:02 65 10/11/16 03:00 97.0 10/10/16 14:31 Nasal Cannula 4 Intake and Output 10/10/16 10/10/16 10/11/16 08:00 16:00 00:00 Intake Total 682 ml Output Total 325 ml Balance 357 ml Result Diagram: 10/10/16 6943 10/11/16 0357 Other Results Laboratory Tests Test 10/10/16 10/10/16 10/11/16 16:35 19:51 05:34 Blood Gas Puncture Site RT RADIAL RT BRACHIAL ART LINE Blood Gas Patient Temperature 37.0 37.0 37.0 Blood Gas HCO3 13 mmol/L 13 mmol/L 14 mmol/L (22-26) (22-26) (22-26) Blood Gas Base Excess -11.8 mmol/L -11.5 mmol/L -10.7 mmol/L (-2-2) (-2-2) (-2-2) Blood Gas Oxygen Saturation 95 % (90-100) 95 % (90-100) 92 % (90-100) Arterial Blood pH 7.37 7.39 7.38 (7.380-7.420) (7.380-7.420) (7.380-7.420) Arterial Blood Partial 23 mmHg (38-42) 21 mmHg (38-42) 23 mmHg (38-42) Pressure CO2 Arterial Blood Partial 95 mmHg 89 mmHg 74 mmHg Pressure O2 (61-120) (61-120) (61-120) Arterial Blood Oxygen Content 21.2 Vol % 21.1 Vol % 18.7 Vol % (12.0-20.0) (12.0-20.0) (12.0-20.0) Arterial Blood 1.1 % (0-4) 1.2 % (0-4) 1.3 % (0-4) Carboxyhemoglobin Arterial Blood Methemoglobin 1.3 % (0-2) 1.1 % (0-2) 1.2 % (0-2) Blood Gas Hemoglobin 15.8 G/DL 15.8 G/DL 14.4 G/DL (12.0-16.0) (12.0-16.0) (12.0-16.0) Oxygen Delivery Device BIPAP BIPAP BIPAP Blood Gas Ventilator Setting IPAP 12/EPAP 5 12IPAP/5EPAP 12IPAP/5EPAP Blood Gas Inspired Oxygen 60 % 60 % 65 % Imaging Last Impressions Chest X-Ray 10/10/16 1212 Signed Impressions: Service Date/Time: Monday, October 10, 2016 12:28 - CONCLUSION: 1. Bilateral perihilar airspace disease likely pulmonary edema. 2. Cardiomegaly. Van Aburto MD Objective Remarks GENERAL: Frail, elderly patient critically ill and in acute respiratory distress. alert and orientated HEENT: Head is normocephalic without any lesions or masses noted. Facial features are symmetric. Eyes: Pupils equal round reactive to light. Extraocular muscles are intact. Conjunctivae were clear. Unable to examine oropharyngeal secondary to BiPAP mask NECK: Trachea midline no deviation. No JVD CARDIAC: tachycardic rate, irregularly irregular rhythm. LUNGS: Crackles noted bilateral bases. increased accessory muscle use. more tachypneic. increasing fio2 to 65%. ABDOMEN: Soft, nontender. Nondistended. no guarding. EXTREMITIES: 1+ pitting edema noted bilateral lower extremity, pulses are equal bilaterally. NEUROLOGY: RASS -1. fc x 4. A/P Problem List: (1) Severe sepsis ICD Code: A41.9 Status: Acute (2) Acute respiratory failure with hypoxia ICD Code: J96.01 Status: Acute (3) Acute renal failure superimposed on stage 3 chronic kidney disease ICD Code: N17.9 Status: Acute (4) Metabolic acidosis, increased anion gap ICD Code: E87.2 Status: Acute (5) Leukocytosis ICD Code: D72.829 Status: Acute (6) Hyponatremia ICD Code: E87.1 Status: Acute (7) Atrial fibrillation with RVR ICD Code: I48.91 Status: Acute (8) Diabetes type 2, uncontrolled ICD Code: E11.65 Status: Acute (9) Urinary tract infection ICD Code: N39.0 Status: Acute (10) Elevated d-dimer ICD Code: R79.89 Status: Acute Assessment and Plan Assessment: 81yF with shortness of breath, recurrent severe pneumonia, and now declining into septic shock requiring vasopressors with end-organ damage. CVP overnight was 2 mmHg after CVL placement. Pulmonary status very tenuous, and still unclear if she will require intubation and mechanical ventilation. Will again talk with family. Renal function slightly improved, acidosis persists, hypoxia persists. Overall still declining. remains very critically ill and worse than yesterday. Acute hypoxic respiratory failure- persistent, worsening. -- continue BiPAP -- serial abg -- may require intubation -- wean fio2 for spo2 > 90% Community Acquired Pneumonia -- history of multiple recent antibiotics, but family is unsure of which ones. continue Vanc/Cefepime/Levaquin to cover pseudomonas in this COPD patient as well as more resistant bacteria given recent exposure to abx -- f/u sputum culture -- f/u blood cultures Septic Shock -- abx as above -- gentle fluid hydration d5NS @ 75cc/hr -- trend lactates -- continue phenylephrine for map > 65 mmHg. avoiding the use of more beta agonists given Afib RVR. Hyponatremia -- continue to trend q6h sodiums -- improving appropriately -- goal slow improvements, 10 meq/24h. Intravascular hypovolemia -- d5ns @ 75cc/hr Possible Congestive Heart Failure, unknown type -- trend BNP -- will give gentle fluid hydration for possible sepsis. if clinically declining , may be forced to change our fluid strategy -- trend CVP -- f/u 2d echo Possible Acute coronary syndrome -- downtrending troponins, unlikely to be ACS. -- heparin drip -- too unstable and high risk for any coronary intervention at this point. will manage conservatively Possible PE -- anticoagulation with heparin drip. -- unable to obtain CT PE protocol- unlikely to be PE given bilateral pulmonary infiltrates. Atrial Fibrillation with Rapid Ventricular Response -- cannot rate control given sepsis and concern for early hemodynamic instability -- trend troponins. -- anticoagulate. Lactic Acidosis Anion-gap metabolic acidosis- persistent -- trend lactates -- most likely secondary to sepsis at this point. her acidosis is making her work of breathing significantly increased, and at this point, we will give 2 amps bicarb to help with her pulmonary mechanics so that we can attempt to avoid intubation in this frail elderly lady. -- gentle fluid hydration as above. Acute Kidney Injury- slight improvement, persistent. -- severe, may require renal replacement therapy, but unlikely to be a good dialysis candidate given overall clinical condition -- FENa 0.2%. prerenal 7/8 -- ivf as above -- daily bmp Severe Hyperglycemia -- start Levemir 10 units -- increase to high dose SSI q4h -- continue D5 dextrose source -- not DKA as patient has no keturia and essentially negative beta-hydroxy- buterate. SCDs, protonix NPO while on BiPAP with high concern for respiratory failure. Overall Impression: Frail elderly female with a declining course over last 6 months now in multiorgan system failure. Unlikely to have favorable outcome. Continue to update family daily. Very critically ill This patient remains critically ill with one or more organ systems which are or may become a threat to life. I have spent in excess of 33 minutes discontinuously in the care and management of this patient. This time is exclusive of procedures, and includes, but is not limited to, evaluation of the patient, review of the medical record, discussions with family, consultants, nursing staff, or respiratory therapy, and documentation in the medical record. Problem Qualifiers (1) Leukocytosis: Qualified Code: D72.829 - Leukocytosis, unspecified type Reymundo Hinojosa MD Oct 11, 2016 06:28
[2016-10-11] MEDS: INSULIN DETEMIR 100 UNITS/ML VIAL SQ SCH (08:54)
[2016-10-11] MEDS: methylPREDNISolone SOD SUCC 125 MG/2 ML VIAL IV PUSH SCH (08:54)
[2016-10-11] MEDS: PANTOPRAZOLE SOD 40 MG DELAYED RELEASE TAB PO SCH (08:54)
--- NOTE | 2016-10-11 09:22 | ECHRPT ---
Indication: Shortness of breath CONCLUSIONS Technically difficult study and endocardium not well visualized, but overall impression is preserved LV function (visually about 50%) without major valvular disease. Wall thickness is normal. Normal left ventricular size. There is mild to moderate tricuspid valve regurgitation. The estimated pulmonary arterial pressure is 38 mmHg. There is a small pericardial effusion present. BP: / HR: 100 Rhythm: Sinus MEASUREMENTS (Male / Female) Normal Values Technical Quality:Technically difficult study 2D ECHO LV Diastolic Diameter PLAX 4.0 cm 4.2 - 5.9 / 3.9 - 5.3 cm LV Systolic Diameter PLAX 3.4 cm IVS Diastolic Thickness 0.9 cm 0.6 - 1.0 / 0.6 - 0.9 cm LVPW Diastolic Thickness 0.9 cm 0.6 - 1.0 / 0.6 - 0.9 cm LV Relative Wall Thickness 0.5 LVOT Diameter 2.0 cm M-MODE Aortic Root Diameter MM 2.8 cm LA Systolic Diameter MM 4.3 cm LA Ao Ratio MM 1.5 AV Cusp Separation MM 2.0 cm DOPPLER AV Peak Velocity 166.0 cm/s AV Peak Gradient 11.0 mmHg LVOT Peak Velocity 125.0 cm/s LVOT Peak Gradient 6.3 mmHg AV Area Cont Eq pk 2.4 cm TR Peak Velocity 266.0 cm/s TR Peak Gradient 28.3 mmHg FINDINGS LEFT VENTRICLE The left ventricular systolic function is mildly reduced with an estimated ejection fraction in the range of 45- 50%. There was limited left ventricular wall motion assessment due to poor endocardial visualization. Wall thickness is normal. Normal left ventricular size. RIGHT VENTRICLE Normal right ventricular size and systolic function. LEFT ATRIUM The left atrial size is normal. RIGHT ATRIUM The right atrial size is normal. ATRIAL SEPTUM Normal atrial septal thickness without atrial level shunting by limited color doppler interrogation. AORTA The aortic root and proximal ascending aorta are normal in size on limited imaging. MITRAL VALVE Structurally normal mitral valve. No mitral valve stenosis or regurgitation. AORTIC VALVE Trileaflet aortic valve. No aortic valve stenosis or regurgitation. TRICUSPID VALVE There is mild to moderate tricuspid valve regurgitation. The estimated pulmonary arterial pressure is 38 mmHg. PULMONARY VALVE The pulmonary valve is not well visualized. VESSELS The inferior vena cava is normal in size. PERICARDIUM There is a small pericardial effusion present. Chris Etienne MD (Electronically Signed) Final Date:11 October 2016 09:21
[2016-10-11] MEDS: PANTOPRAZOLE SODIUM 40 MG VIAL IV PUSH SCH (10:00)
[2016-10-11 10:21] LABS: HEMOGLOBIN A1a 1.4 %; HEMOGLOBIN A1b 1.3 %; HEMOGLOBIN Ao 78.8 %; HEMOGLOBIN F 2.1 %; HEMOGLOBIN LA1C 2.8 %; HEMOGLOBIN P3 7.3 %
[2016-10-11 11:06] LABS: POTASSIUM 3.6 MEQ/L (3.5-5.1)
[2016-10-11 11:10] LABS: BICARBONATE 20.2 MEQ/L (21.0-32.0)
[2016-10-11 11:11] LABS: APTT (PATIENT) 70.7 SEC (24.3-30.1)
--- NOTE | 2016-10-11 12:23 | HHI.PR ---
Addendum to Inpatient Note Addendum Reason: Additional Documentation Additional Information Evaluated patient in room 8401 in [place] ICU, Discussed with Patient and Niece at bedside. Discussed patient's condition and guarded prognosis. Patient was an alternate code, after discussion and further consideration, Patient and Niece decided to become DO NOT RESUSCITATE, No Code. I also discussed with them Palliative care consult and Hospice evaluation, at this time niece indicates that patient does not want that at this time. Will re-evaluate if condition worsens. Vladislav Valencia Oct 11, 2016 12:23
--- NOTE | 2016-10-11 13:23 | EKG ---
Date Performed: 10/11/2016 Time Performed: 04:15:47 PTAGE: 81 years EKG: ATRIAL FIBRILLATION WITH RAPID VENTRICULAR RESPONSE NONSPECIFIC ST & T-WAVE ABNORMALITY ABN ORMAL ECG PREVIOUS TRACING : 10/10/2016 22.28 Compared to prior tracing no significant change DOCTOR: Dane Chin Interpretating Date/Time 10/11/2016 13:22:46
--- NOTE | 2016-10-11 13:39 | EKG ---
Date Performed: 10/10/2016 Time Performed: 22:28:05 PTAGE: 81 years EKG: ATRIAL FIBRILLATION WITH RAPID VENTRICULAR RESPONSE ST DEVIATION AND MODERATE T-WAVE ABNORM ALITY, CONSIDER LATERAL ISCHEMIA ABNORMAL ECG PREVIOUS TRACING : 10/10/2016 16.27 Compared to prior tracing no significant change DOCTOR: Dane Chin Interpretating Date/Time 10/11/2016 13:38:36
[2016-10-11] MEDS ORDERED: AZITHROMYCIN INJ 500 MG in SODIUM CHLOR 0.9% 250 ML INJ 250 ML IV SCH (14:00)
[2016-10-11] MEDS ORDERED: FUROSEMIDE 20 MG/2 ML VIAL IV PUSH ONE (15:15)
[2016-10-11] MEDS ORDERED: ALBUMIN HUMAN 25% 12.5 GM/50 ML BAGP IV ONE (15:15)
[2016-10-11] MEDS: ALPRAZolam 0.25 MG TAB PO PRN (18:34)
--- NOTE | 2016-10-11 18:58 | MB ---
cc: PO GRANADOS DATE OF CONSULTATION: 10/11/2016. REASON FOR CONSULTATION: Respiratory failure, pulmonary edema. HISTORY OF PRESENT ILLNESS: This is an 81-year-old white female with a history of atrial fibrillation and congestive heart failure. She has had a history for a persistent left upper lung infiltrate. The patient had been on diuretics and she has been having some shortness of breath and she came to the emergency room because of frequent falls, weakness and increasing dyspnea. Upon arrival, she was hypoxic and was placed on a BiPAP mask and started on IV fluids and now is in the intensive care unit. The basic metabolic profile showed evidence of acute renal failure, blood gases consistent with metabolic acidosis with increased anion gap. She had a CBC which showed leukocytosis with a white count of over 20,000. The patient was in atrial fibrillation and was septic and thus has been started on multiple antibiotics and also on pressors since she was hypotensive. The patient presently is awake. She is pale. She is having significant shortness of breath and on FIO2 of 50%. Her chest x-ray showed diffuse vascular congestion. PAST MEDICAL HISTORY: 1. History for persistent left upper lobe infiltrate. The patient underwent a bronchoscopy recently in August of this year which showed only inflammatory cells and there was no evidence of bronchial obstruction. 2. She has chronic kidney disease. 3. She has diabetes mellitus type 2. 4. History of hypertension. 5. History of atrial fibrillation. 6. History of urinary tract infections. PAST SURGICAL HISTORY: 1. Hysterectomy. 2. Colonoscopy with polypectomy. 3. Bronchoscopy. 4. Carpal tunnel release. ALLERGIES: NONE LISTED. HABITS: The patient does not smoke but in the past she has smoked for about thirty years a pack a day. No significant alcohol. FAMILY HISTORY: Noncontributory. REVIEW OF SYSTEMS: The patient is unable to discuss any details. She is in distress and on a BiPAP mask. She denies any chest pains. She has had mild leg swelling. She denies nausea or vomiting or aspiration. PHYSICAL EXAMINATION: GENERAL: This is an elderly averagely built white female who is pale and dyspneic on a BiPAP mask. VITAL SIGNS: Heart rate is 120, blood pressure 105/60, respirations 24, temperature 97.5. HEAD, EYES, EARS, NOSE, THROAT: Head normocephalic. The pupils are reactive. Tongue is dry. Throat is injected. Nasal mucosa is edematous. NECK: The neck is supple with mild venous distention. Trachea is midline. No thyroid enlargement. CHEST: Distant breath sounds with crackles at the lung bases with expiratory wheezes bilaterally. HEART: The heart sounds are irregularly irregular. S1-S2 with no murmur. ABDOMEN: Abdomen is soft and protuberant without masses. No organomegaly or tenderness. The bowel sounds are active. EXTREMITIES: Mild varicosities, edema 1+ decreased peripheral pulses. NEUROLOGIC: Reflexes are 1+. No gross motor deficits. SKIN: Cool and dry. IMPRESSION: 1. Severe sepsis. 2. Congestive heart failure. 3. Acute respiratory failure. 4. Acute renal failure with stage III chronic kidney disease. 5. Diabetes mellitus. 6. Urinary tract infection. PLAN: 1. The patient has been started on antibiotic coverage which will be continued, and also continue with Solu-Medrol 40 milligrams twice a day. 2. BiPAP 16/8 cm with FIO2 of 40%. 3. The patient's urine output will be monitored and diuretics given judiciously. 4. We will also repeat a blood gas study. 5. I discussed with her the possibility of being intubated; however, she defers that decision to her niece who is her power of research attorney. 6. The patient will be monitored closely and a follow up chest x-ray has been ordered for the morning. Thank you Dr. Ayala for this consultation. MD TAMARA Funez/LALITHA /6:01 PM /6:50 PM
[2016-10-11] MEDS ORDERED: FUROSEMIDE 40 MG/4 ML VIAL IV PUSH ONE (19:30)
[2016-10-11] MEDS: methylPREDNISolone SOD SUCC 40 MG/1 ML VIAL IV PUSH SCH (19:40)
[2016-10-11] MEDS: CEFEPIME INJ 1,000 MG in SODIUM CHLORIDE 0.9% INJ 100 ML IV SCH (19:41)
[2016-10-11] MEDS: HEPARIN-D5W INJ 250 ML IV SCH (19:44)
[2016-10-12] VITALS (36 sets, daily range): BP systolic 85–148; BP diastolic 46–84; PULSE 69–128; RESP 12–26; TEMP 96.3–97.5; O2SAT 90–95
[2016-10-12] MEDS ORDERED: FUROSEMIDE 40 MG/4 ML VIAL IV PUSH ONE (00:15)
[2016-10-12] MEDS: POTASSIUM CHLOR 20 MEQ PREMIX 100 ML IV SCH ×2 (00:23→02:27)
[2016-10-12 00:57] LABS: POTASSIUM 3.3 MEQ/L (3.5-5.1)
[2016-10-12 01:01] LABS: BICARBONATE 22.4 MEQ/L (21.0-32.0)
[2016-10-12] MEDS: PHENYLEPHRINE INJ 40 MG in DEXTROSE 5% IN WATE 500 ML INJ 496 ML IV SCH ×4 (01:23→14:38)
[2016-10-12] MEDS: ALPRAZolam 0.25 MG TAB PO PRN ×3 (01:23→20:17)
[2016-10-12] MEDS: RESP: ALBUTEROL 2.5 MG/IPRATROPIUM 0.5 MG NEB (SCH) INH ×6 (03:46→23:17)
[2016-10-12] MEDS: INSULIN NovoLIN REGULAR SUPPLEMENTAL SCALE SQ SCH ×5 (04:00→20:25)
[2016-10-12 05:25] LABS: POTASSIUM 4.1 MEQ/L (3.5-5.1)
[2016-10-12 05:28] LABS: BICARBONATE 22.6 MEQ/L (21.0-32.0); MAGNESIUM 2.7 MG/DL (1.5-2.5)
[2016-10-12 05:31] LABS: APTT (PATIENT) 65.3 SEC (24.3-30.1)
--- NOTE | 2016-10-12 06:20 | HHI.CCPN ---
Subjective Remarks/Hospital Course Hospital Course: 81-year-old female with known history of hypertension, hyperlipidemia , diabetes, arthritis, chronic obstructive pulmonary disease, recent left upper lobe infiltrate who presented to the hospital because of weakness, falls, shortness of breath and dyspnea. The patient herself is in critical condition and acute respiratory failure with BiPAP at this time. It was difficult to obtain information from the patient, information was limited due to her clinical condition. Upon review medical records, discussion with ER physician, nursing staff and patient is being worked up in outpatient setting by Dr. Tan mckay for chronic left lung infiltrate. Patient did undergo bronchoscopy on in which did not indicate any malignant cells. Does show scattered inflammatory cells. Patient indicates that she has been getting short of breath more recently. She has been falling more frequently. She does live at home by herself, family does not live with her however she does have a niece that lives nearby and checks on her frequently. Patient states that she fell this morning in the bath and had been short of breath and weak since then. The niece checked on her and because of her condition she brought her to the hospital for evaluation. The patient was found to have severe multiple medical issues. With acute respiratory failure, new onset atrial fibrillation with RVR , acute renal failure, severe metabolic acidosis with increased anion gap, possible congestive heart failure. Without emergent/critical care management at this time patient would likely not survive. Patient will be admitted to ICU for continued care and further workup to evaluate for possible etiology of her symptoms and clinical findings Subjective: 10/11: worsening fio2 overnight. required initiation of vasopressors. now in shock. Cr slightly improved. overall decline. remains on BiPAP. 10/12: back on phenylephrine overnight. given 2 doses lasix for volume overload, rising CVP, increasing fio2 on BiPAP with bibasilar crackles. still declining overall clinical course. sputum growing GNRs. Objective Vital Signs Date Time Temp Pulse Resp B/P Pulse Ox O2 Delivery O2 Flow Rate FiO2 10/12/16 06:00 102 10/12/16 05:58 92 Bi-Pap 80 10/12/16 05:00 147/72 100/48 10/12/16 05:00 13 10/12/16 04:00 96.3 10/10/16 14:31 4 Intake and Output 10/11/16 10/11/16 10/12/16 08:00 16:00 00:00 Intake Total 555 ml 803 ml 192 ml Output Total 475 ml 800 ml 825 ml Balance 80 ml 3 ml -633 ml Result Diagram: 10/10/16 2140 10/12/16 0423 Imaging Last Impressions Chest X-Ray 10/10/16 1212 Signed Impressions: Service Date/Time: Monday, October 10, 2016 12:28 - CONCLUSION: 1. Bilateral perihilar airspace disease likely pulmonary edema. 2. Cardiomegaly. Van Aburto MD Objective Remarks GENERAL: Frail, elderly patient critically ill and in persistent acute respiratory distress. alert and orientated HEENT: Head is normocephalic without any lesions or masses noted. Facial features are symmetric. Pupils equal round reactive to light. Unable to examine oropharyngeal secondary to BiPAP mask NECK: Trachea midline no deviation. No JVD CARDIAC: tachycardic rate, irregularly irregular rhythm. afib by tele. LUNGS: Crackles noted bilateral bases. + accessory muscle use. tachypneic. increasing fio2 to 80%. increasing support to 14/7 ABDOMEN: Soft, nontender. Nondistended. no guarding. EXTREMITIES: 1+ pitting edema noted bilateral lower extremity, pulses are equal bilaterally. NEUROLOGY: RASS -1. fc x 4. A/P Problem List: (1) Severe sepsis ICD Code: A41.9 Status: Acute (2) Acute respiratory failure with hypoxia ICD Code: J96.01 Status: Acute (3) Acute renal failure superimposed on stage 3 chronic kidney disease ICD Code: N17.9 Status: Acute (4) Metabolic acidosis, increased anion gap ICD Code: E87.2 Status: Acute (5) Leukocytosis ICD Code: D72.829 Status: Acute (6) Hyponatremia ICD Code: E87.1 Status: Acute (7) Atrial fibrillation with RVR ICD Code: I48.91 Status: Acute (8) Diabetes type 2, uncontrolled ICD Code: E11.65 Status: Acute (9) Urinary tract infection ICD Code: N39.0 Status: Acute (10) Elevated d-dimer ICD Code: R79.89 Status: Acute Assessment and Plan Assessment: 81yF with shortness of breath, recurrent severe pneumonia, septic shock complicated by volume overload and evidence of CHF exacerbation (likely with preserved EF or combination systolic/diastolic dysfunction). Pulmonary status declining. remains on vasopressors for end-organ perfusion. Patient and family decided on DNR/DNI yesterday, but continues with aggressive care for now. Palliative consulted. Overall still declining. remains very critically ill and worse than yesterday. Acute hypoxic respiratory failure- persistent, worsening. -- continue BiPAP -- wean fio2 for spo2 > 90% -- not improving, actually continues to worsen. continue supportive care. patient is DNI. Community Acquired Pneumonia -- history of multiple recent antibiotics, but family is unsure of which ones. continue Vanc/Cefepime/Levaquin to cover pseudomonas in this COPD patient as well as more resistant bacteria given recent exposure to abx -- f/u sputum culture -- f/u blood cultures Septic Shock -- abx as above -- ivf hydration stopped yesterday due to intravascular volume overload. difficult position to be in physiologically: requires vasopressors for end- organ perfusion, but additional volume could be catastrophic to her pulmonary status. -- continue phenylephrine for map > 65 mmHg. avoiding the use of more beta agonists given Afib RVR. Hyponatremia -- continue to trend q6h sodiums -- improving appropriately -- goal slow improvements, 10 meq/24h. Intravascular volume overload -- lasix 40mg iv x 1 this morning. Congestive Heart Failure, unknown type -- d/c ivf hydration yesterday. gentle diuresis today. -- trend CVP -- 2d echo 10/10: preserved LF function estimated at 50%, mild-moderate TR, small pericardial effusion Troponin elevation/Type II NSTEMI secondary to demand ischemia -- downtrending troponins, unlikely to be ACS. -- heparin drip -- too unstable and high risk for any coronary intervention at this point. will manage conservatively Atrial Fibrillation with Rapid Ventricular Response -- cannot rate control given sepsis and concern for early hemodynamic instability -- trend troponins. -- anticoagulate with heparin drip Lactic Acidosis- improving Anion-gap metabolic acidosis- persistent -- most likely secondary to sepsis, complicated by CHF. -- abg prn, daily bmp. Acute Kidney Injury- persistent. -- severe, may require renal replacement therapy, but unlikely to be a good dialysis candidate given overall clinical condition -- FENa 0.2%. prerenal 10/10 -- daily bmp -- diuresis despite jaylyn. Severe Hyperglycemia- improved control. -- continue Levemir 10 units -- continue high dose SSI q4h -- start d10w for continued dextrose in this NPO patient, low dose 25cc/hr. -- not DKA as patient has no keturia and essentially negative beta-hydroxy- buterate. SCDs, protonix NPO while on BiPAP with high concern for respiratory failure. Overall Impression: Frail elderly female with a declining course over last 6 months now in multiorgan system failure. Unlikely to have favorable outcome. Continue to update family daily. Very critically ill This patient remains critically ill with one or more organ systems which are or may become a threat to life. I have spent in excess of 31 minutes discontinuously in the care and management of this patient. This time is exclusive of procedures, and includes, but is not limited to, evaluation of the patient, review of the medical record, discussions with family, consultants, nursing staff, or respiratory therapy, and documentation in the medical record. Problem Qualifiers (1) Leukocytosis: Qualified Code: D72.829 - Leukocytosis, unspecified type Reymundo Hinojosa MD Oct 12, 2016 06:20
[2016-10-12] MEDS: DEXTROSE 10% INJ 1,000 ML IV SCH (06:37)
[2016-10-12] MEDS: methylPREDNISolone SOD SUCC 40 MG/1 ML VIAL IV PUSH SCH ×2 (08:22→20:17)
[2016-10-12] MEDS: INSULIN DETEMIR 100 UNITS/ML VIAL SQ SCH (08:26)
[2016-10-12] MEDS: PANTOPRAZOLE SODIUM 40 MG VIAL IV PUSH SCH (08:27)
[2016-10-12 08:28] LABS: HEMATOCRIT 39.3 % (35.0-46.0); MEAN CELL VOLUME 82.6 FL (80.0-100.0); MEAN CORPUSCULAR HEMOGLOBIN 27.9 PG (27.0-34.0); MEAN CORPUSCULAR HGB CONC 33.8 % (32.0-36.0); PLATELET COUNT 205 TH/MM3 (150-450); RED BLOOD COUNT 4.75 MIL/MM3 (4.00-5.30); RED CELL DISTRIBUTION WIDTH 14.1 % (11.6-17.2); REVIEW FLAG FINAL; WHITE BLOOD COUNT 22.8 TH/MM3 (4.0-11.0)
--- NOTE | 2016-10-12 17:24 | PD.CONS ---
Consult Service Palliative Care . Consult Requested By Dr. Hinojosa. . Primary Care Physician Jose A Romo DO . Reason for Consultation a. To assist with evaluation and management of symptoms including: dyspnea; anxiety; depression b. To assist medical decision maker(s) with: better understanding of current medical conditions; weighing benefits/burdens of medical treatment options; making medical treatment decisions. . HPI History of Present Illness Ms. Christie is an 81 y/o female with a known hx of hypertension, hyperlipidemia , DM, arthritis, COPD, and colon cancer who was brought to the ED via [facility] on because of increased shortness of breath. Upon arrival at the patient's home, the paramedics reported a 02 sat of 89 % on RA which increased to 93% on 2L/min. EKG at the site showed atrial fibrillation . The patient reported a history of refractory respiratory symptoms that probably began in April 2016 as a "cold.". The cold became recurrent bronchitis and she failed at least two courses of outpatient antibiotic treatment. CXR was abnormal and she underwent CT imaging of the chest on 07/09/16. The CT demonstrated a 5.4 x 4 cm mass like consolidation in the ANUP without associated adenopathy. Malignancy could not be excluded. There was also a 9 mm nodule in the superior segment of the RUL and an 8mm nodule in the ANUP as well. She had no complaints of hemoptysis or night sweats at that time, but did report some weight loss. She was then brought into outpatient surgery at [facility] on 08/14/16 to undergo fiberoptic bronchsocopy. No significant abnormalities were seen on bronchoscopy and the pathology revealed no malignant cells. The patient has continued to decline. Per her niece , she has grown progressively weaker since April. There has been no known weight loss. On the day of admission, the niece found her very short of breath, very weak, and very confused. She had also suffered a recent fall. VS in the ED were as follows: T 97.8 ; Pulse 118; RR 19; BP 111/63; Pulse ox 91% on 02 via NC at 4 L/m Examination by the emergency machining department supervisor noted the following -- > patient appeared well-nourished and well-developed. Heart rate was irregularly irregular. Her crackles in all lung rubio. There is no accessory muscle use. Remainder of the exam was unremarkable. Initial diagnostic testing revealed the following: * CBC showed WBC 31.0; hemoglobin 16.0; platelet count 294. There were 3% band neutrophils * Chemistry profile showed sodium 113; potassium 4.7; chloride 81; CO2 13.1; anion gap 19; BUN 164; creatinine 3.1; GFR 14; glucose 292; calcium 8.7 * Her function study showed bilirubin 1.0; AST 28; ALT 40; alkaline phosphatase 95; total protein 8.0; albumin 2.9 * B type natriuretic peptide was 239 * Chest x-ray showed bilateral perihilar airspace disease with likely pulmonary edema as well as cardiomegaly * EKG showed atrial fibrillation with a rapid ventricular rate The patient was admitted with concerns for her pulmonary status, new onset atrial fibrillation, hyponatremia, kidney injury, leukocytosis, and acidosis. Critical care was consulted and the patient was admitted to the intensive care unit. The patient is continuing to decline since admission. Currently, a gram- negative rods growing out of her blood; she is on BiPAP at 80% FiO2; she requires active pressor support to maintain her blood pressure; renal function is declining; and she remains in atrial fibrillation. The patient has remained awake and alert. She is verbally requested that her niece Nicole Wilkinson -- serve as her health care surrogate should she become incapacitated. After discussion with the doctors about her current medical condition she has also opted for DNR status so she would like aggressive treatments short of resuscitation. At time of my visit, patient is awake and alert with BiPAP in place. The BiPAP mask makes conversation challenging. She denies pain other than the discomfort of the mask. She admits that she is frightened. . Function/Cognitive Trajectory According to the patient's niece, Ms. Christie, was taking care of all of her ADLs prior to April,. She would do her own grocery shopping and would walk behind a cart. She was able to navigate some steps in and out of her own home. As noted above, she grew gradually worse over the months fighting this respiratory infection. She had been living with her sister who, unfortunately, about 4 weeks ago from breast cancer. The patient's medical condition then was exacerbated by grief. The patient, per the niece, had no history of respiratory symptoms prior to April. She had never been on oxygen She needed nebulizer treatments or metered-dose inhalers. She had, apparently been notified about an irregular heart rate in the past. . . Review of Systems ROS Limitations: Clinical Condition (patient is unable to provide her own review of systems because of the BiPAP mask. Review of systems taken from the medical record and from the patient's niece.) Constitutional: COMPLAINS OF: Fatigue, Generalized weakness, DENIES: Diaphoretic episodes, Weight gain, Weight loss, Dizziness, Night Sweats, Pain Endocrine: DENIES: Polydipsia, Polyuria, Polyphagia Eyes: DENIES: Blurred vision, Diplopia, Eye pain, Vision loss Ears, nose, mouth, throat: COMPLAINS OF: Hearing loss, Vertigo, DENIES: Nasal discharge, Oral lesions, Throat pain, Epistaxis Respiratory: COMPLAINS OF: Cough, Wheezing, Sputum production, Shortness of breath, DENIES: Apneas, Snoring, Hemoptysis Cardiovascular: COMPLAINS OF: Palpitations, Dyspnea on Exertion, DENIES: Chest pain, Syncope, Lower Extremity Edema, Claudication Gastrointestinal: COMPLAINS OF: Constipation, Dyspepsia or heartburn, DENIES: Abdominal pain, Black stools, Diarrhea, Nausea, Vomiting, Difficulty Swallowing , Anorexia, Vomiting blood Musculoskeletal: DENIES: Muscle aches, Joint Swelling, Back pain, Neck pain Integumentary: DENIES: Pruritus, Nodules, Excessive dryness Hematologic/Lymphatics: DENIES: Bruising, Lymphadenopathy, Prolonged bleed w/ proced Neurologic: DENIES: Abnormal gait, Localized weakness, Paresthesias, Seizures, Tremor, Poor Balance Psychiatric: COMPLAINS OF: Anxiety, Confusion, Depression (Sister she lived with about 4 weeks prior to admission), DENIES: Agitation, Suicidal Ideation, Homicidal Ideation Other ROS: * Recent fall Past Family Social History Coded Allergies: No Known Allergies (Unverified , 10/10/16) Past Medical History * Hypertension * Hyperlipidemia * Osteoarthritis * Colon cancer (underwent surgical excision of a large cancerous polyp) * diverticulosis Past Surgical History * Surgical excision of a cancerous polyp 04/16/15 * Bilateral carpal tunnel release * Bronchoscopy August 2016 Reported Medications Prehospitalization medications included the following: Duoneb (Ipratropium-Albuterol Neb) 0.5-2.5 Mg/3 Ml Neb 1 Nebule INH Q4HR NEB Prednisone 5 Mg Tab 5 Mg PO DAILY Hydrochlorothiazide 25 Mg Tab 25 Mg PO DAILY PRN Amlodipine (Amlodipine Besylate) 5 Mg Tab 5 Mg PO DAILY Lovastatin 20 Mg Tab 20 Mg PO HS . Current Medications Medications (Trade) Dose Ordered Sig/Samy Route Start Time Stop Time Status Last Admin (NS Flush) 2 ml UNSCH PRN IVF 10/10/16 12:15 (Zofran Inj) 4 mg Q6H PRN IV 10/10/16 14:45 Acetaminophen 650 mg 650 mg Q4H PRN PO 10/10/16 14:45 Heparin Sodium/ Dextrose 250 ml @ 0 mls/hr TITRATE IV 10/10/16 19:45 10/11/16 19:44 (Neosynephrine Inj/D5W 500 ml Inj) 500 ml @ 0 mls/hr TITRATE IV 10/10/16 21:00 10/12/16 14:38 Terbutaline Sulfate 1 mg 1 mg UNSCH PRN SQ 10/10/16 20:00 Cefepime HCl 1000 mg/Sodium Chloride 100 ml @ 200 mls/hr Q24H IV 10/10/16 22:00 10/11/16 19:41 Pharmacy Profile Note 0 ml @ 0 mls/hr UNSCH OTHER 10/10/16 21:00 (Levaquin 750 Mg Premix Inj) 150 ml @ 100 mls/hr Q48H IV 10/10/16 23:00 10/10/16 22:31 (D50w (Vial) Inj) 25 ml UNSCH PRN IV PUSH 10/11/16 06:15 (NovoLIN R SUPPLEMENTAL SCALE) 1 Q4HR SQ 10/11/16 08:00 10/12/16 11:52 (Levemir Inj) 5 units DAILY SQ 10/11/16 09:00 10/12/16 08:26 Pantoprazole Sodium 40 mg 40 mg Q24H IV PUSH 10/11/16 10:00 10/12/16 08:27 (Vancomycin Inj/ NS 250 ml Inj) 262.5 ml @ 250 mls/hr Q48H IV 10/12/16 23:00 Miscellaneous Information SPECIFIC LAB TO BE DRAWN:VANCOMY... ONCE ONCE .XX 10/16/16 22:45 10/16/16 22:46 (Xanax) 0.25 mg Q6H PRN PO 10/11/16 18:00 10/12/16 13:12 Methylprednisolone Sodium Succinate 40 mg 40 mg Q12HR IV PUSH 10/11/16 21:00 10/12/16 08:22 (D10w Inj) 1,000 ml @ 25 mls/hr Q24H IV 10/12/16 06:30 10/12/16 06:37 . Family History Family history was taken from the patient's niece. Niece does not know the cause of of the patient's parents other than they in [place] at relatively young age. One sister recently of breast cancer. A brother of end-stage Parkinson's disease. Another sister of hepatitis C and heart disease. Diabetes runs in the family. . Substance Use Tobacco: Smoked 1 ppd for 15 years Alcohol: No hx of abuse Prescription med abuse: No known prescription drug abuse Illicits: No known use of illicits. . Psychosocial History The patient was warned in [place]. She has lived in [facility] for about 60 or 70 years. She has the equivalent of a high school education. 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 She also worked for [employer] in [employer]. The patient was twice. The first is . She the second . She has never had children. The patient has been living with one of her sisters for many years. This sister just about 4 weeks prior to this hospital admission. The patient's only remaining close family member is her niece Nicole Wilkinson -- one lives in [place], [place]. . Spiritual/Cultural Factors The patient comes from a Catholic tradition. Most recently she has attended a "spiritual adventism" in [place], [place]. . Living Will: Copy in medical record Health Care Surrogate: Copy in medical record Durable Power of Engineer: Never completed Date completed: The patient was able to provide a verbal advance directive on 10/11/16 and 10/12. . Health Care Surrogate(s): The patient has verbally declared that she wants her niece-- Nicole Wilkinson - - to serve as her health care surrogate. I personally witnessed this declaration as did her primary nurse on 10/12/16- [employer]. .- Documented care wishes: The patient has also told the medical team as well as her niece about specific health care goals and preferences. She does not want intubation and mechanical ventilation. She does not want shock or chest compressions. She is interested in continuing with aggressive care short of resuscitation efforts. She has confirmed these wishes in front of me on 10/12/16.. . Today's verbally stated goals: Patient confirms the above wishes regarding no intubation, no mechanical ventilation, no shock, and no chest compressions. . Family/friends goals: I spoke with the patient's niece, her health care surrogate, by phone today. Niece agrees with the patient's above-stated goals/preferences. . Ethical and Legal Issues Patient is currently capacitated to make her own health care decisions. No known at the legal issues present at this time. . Physical Exam Vital Signs Date Time Temp Pulse Resp B/P Pulse Ox O2 Delivery O2 Flow Rate FiO2 10/12/16 15:24 92 80 10/12/16 14:00 120 122/71 134/58 10/12/16 13:00 114 117/72 126/54 10/12/16 13:00 114 19 117/72 91 126/54 10/12/16 12:00 122 10/12/16 12:00 118 116/62 116/52 10/12/16 12:00 118 21 116/62 92 116/52 10/12/16 11:50 95 75 10/12/16 11:35 95 10/12/16 11:00 114 22 131/70 94 112/48 10/12/16 11:00 114 10/12/16 11:00 114 131/70 112/48 10/12/16 10:00 122 10/12/16 10:00 122 135/68 112/50 10/12/16 10:00 122 25 135/68 94 112/50 10/12/16 09:38 93 85 10/12/16 09:00 124 117/66 106/48 10/12/16 09:00 124 10/12/16 09:00 124 26 117/66 92 106/48 10/12/16 08:00 94 Bi-Pap 80 10/12/16 08:00 124 10/12/16 08:00 124 115/84 112/52 10/12/16 08:00 97.4 124 24 115/84 94 112/52 10/12/16 07:36 93 80 10/12/16 07:00 110 14 103/67 92 98/48 10/12/16 07:00 110 103/67 98/48 10/12/16 06:00 102 10/12/16 06:00 114 12 148/68 92 108/50 10/12/16 06:00 102 148/68 108/50 10/12/16 05:58 92 Bi-Pap 80 10/12/16 05:00 114 147/72 100/48 10/12/16 05:00 116 13 147/72 94 100/48 10/12/16 04:02 93 80 10/12/16 04:00 96.3 122 22 131/66 93 110/52 10/12/16 04:00 69 131/66 110/52 10/12/16 04:00 69 10/12/16 03:00 107 140/76 108/54 10/12/16 03:00 122 22 140/76 93 108/54 10/12/16 02:00 110 117/62 92/46 10/12/16 02:00 122 13 117/62 93 92/46 10/12/16 02:00 110 10/12/16 01:32 93 80 10/12/16 01:00 128 108/62 102/48 10/12/16 01:00 128 24 108/62 93 102/48 10/12/16 00:05 91 80 10/12/16 00:00 114 10/12/16 00:00 128 23 93/61 91 104/48 10/12/16 00:00 114 93/61 104/48 10/11/16 23:00 116 138/85 118/52 10/11/16 23:00 120 23 138/85 93 118/52 10/11/16 22:30 93 70 10/11/16 22:00 112 10/11/16 22:00 112 15 108/70 92 116/48 10/11/16 22:00 105 108/70 116/48 10/11/16 21:00 114 14 104/62 93 102/44 10/11/16 21:00 107 104/62 102/44 10/11/16 20:00 120 119/74 120/50 17 20:00 122 10/11/16 20:00 97.6 120 22 119/74 95 120/50 7/9/17 19:28 93 70 10/11/16 19:00 104 104/92 102/46 10/11/16 19:00 112 15 113/66 92 102/46 10/11/16 18:00 118 10/11/16 18:00 118 25 108/64 93 108/48 10/11/16 18:00 118 108/64 108/48 . 10/11/16 10/12/16 19:00 07:00 Intake Total 803 ml 549 ml Output Total 800 ml 1425 ml Balance 3 ml -876 ml IV Total 803 ml 549 ml Output Urine Total 800 ml 1425 ml . Exam CONSTITUTIONAL/GENERAL: This is an adequately nourished patient, awake, alert, anxious appearing , BiPAP mask in place in an ICU bed. TUBES/LINES/DRAINS: Left radial Arterial line, periperhal IV; BiPAP; beyer catheter; axiallary central venous catheter SKIN: No jaundice, rashes, or lesions. No wounds seen anteriorly. Skin temperature appropriate. Not diaphoretic. HEAD: Atraumatic. Normocephalic. EYES: Pupils equal and round and reactive. Extraocular motions intact. No scleral icterus. No injection or drainage. Fundi not examined. ENT: Hearing grossly normal. Nose without bleeding or purulent drainage. Throat without visible erythema, exudates, masses, or lesions though difficult to assess with BiPAP NECK: Trachea midline. Supple, nontender. No palpable thyroid enlargement or nodularity. CARDIOVASCULAR: Irregularly irregular rhythm; tachycardic; without murmurs, gallops, or rubs. No JVD. Peripheral pulses weak. RESPIRATORY/CHEST: Symmetric, respirations on BiPAP. Bilateral crackles. Breath sounds equal bilaterally. No wheezes. GASTROINTESTINAL: Abdomen soft, non-tender, nondistended. No hepato-splenomegaly , or palpable masses. No guarding. Bowel sounds present. GENITOURINARY: Without palpable bladder distension. Beyer catheter in place. MUSCULOSKELETAL: Extremities without clubbing, cyanosis, or edema. No calf tenderness. No mottling or clubbing. LYMPHATICS: No palpable cervical or supraclavicular adenopathy. NEUROLOGICAL: Awake and alert. Motor and sensory grossly within normal limits. Follows commands. Cognitively sharp. Moves all extremities. PSYCHIATRIC: Appears frightened. No apparent hallucinations or other psychotic thought process. . Diagnostic Tests Laboratory Laboratory Tests Test 10/10/16 10/10/16 10/10/16 10/10/16 12:18 16:10 16:16 16:20 White Blood Count 31.0 TH/MM3 (4.0-11.0) Red Blood Count 5.75 MIL/MM3 (4.00-5.30) Hemoglobin 16.0 GM/DL (11.6-15.3) Hematocrit 47.3 % (35.0-46.0) Mean Corpuscular Volume 82.3 FL (80.0-100.0) Mean Corpuscular Hemoglobin 27.8 PG (27.0-34.0) Mean Corpuscular Hemoglobin 33.8 % Concent (32.0-36.0) Red Cell Distribution Width 13.6 % (11.6-17.2) Platelet Count 294 TH/MM3 (150-450) Mean Platelet Volume 9.8 FL (7.0-11.0) Neutrophils (%) (Auto) 97.3 % (16.0-70.0) Lymphocytes (%) (Auto) 1.6 % (9.0-44.0) Monocytes (%) (Auto) 0.6 % (0.0-8.0) Eosinophils (%) (Auto) 0.0 % (0.0-4.0) Basophils (%) (Auto) 0.5 % (0.0-2.0) Neutrophils # (Auto) 30.1 TH/MM3 (1.8-7.7) Lymphocytes # (Auto) 0.5 TH/MM3 (1.0-4.8) Monocytes # (Auto) 0.2 TH/MM3 (0-0.9) Eosinophils # (Auto) 0.0 TH/MM3 (0-0.4) Basophils # (Auto) 0.2 TH/MM3 (0-0.2) CBC Comment AUTO DIFF Differential Total Cells 100 Counted Neutrophils % (Manual) 92 % (16-70) Band Neutrophils % 3 % (0-6) Lymphocytes % 2 % (9-44) Monocytes % 2 % (0-8) Neutrophils # (Manual) 29.8 TH/MM3 (1.8-7.7) Metamyelocytes 1 % (0-1) Differential Comment FINAL DIFF MANUAL Platelet Estimate NORMAL (NORMAL) Platelet Morphology Comment NORMAL (NORMAL) D-Dimer Quantitative (PE/DVT) 3.97 MG/L FEU (0.00-0.50) Sodium Level 113 MEQ/L 117 MEQ/L (136-145) (136-145) Potassium Level 4.7 MEQ/L 4.2 MEQ/L (3.5-5.1) (3.5-5.1) Chloride Level 81 MEQ/L 83 MEQ/L (98-107) (98-107) Carbon Dioxide Level 13.1 MEQ/L 15.7 MEQ/L (21.0-32.0) (21.0-32.0) Anion Gap 19 MEQ/L (5-15) 18 MEQ/L (5-15) Blood Urea Nitrogen 164 MG/DL 166 MG/DL (7-18) (7-18) Creatinine 3.10 MG/DL 2.90 MG/DL (0.50-1.00) (0.50-1.00) Estimat Glomerular Filtration 14 ML/MIN (>89) 16 ML/MIN (>89) Rate Random Glucose 292 MG/DL 230 MG/DL (74-106) (74-106) Calcium Level 8.7 MG/DL 8.3 MG/DL (8.5-10.1) (8.5-10.1) Total Bilirubin 1.0 MG/DL (0.2-1.0) Aspartate Amino Transf 28 U/L (15-37) (AST/SGOT) Alanine Aminotransferase 40 U/L (10-53) (ALT/SGPT) Alkaline Phosphatase 95 U/L (45-117) B-Type Natriuretic Peptide 239 PG/ML (0-100) Total Protein 8.0 GM/DL (6.4-8.2) Albumin 2.9 GM/DL (3.4-5.0) Urine Collection Type CLEAN CATCH Urine Color YELLOW (YELLW/STRAW) Urine Turbidity CLEAR (CLEAR) Urine pH 5.5 (5.0-8.5) Urine Specific [place] 1.015 (1.002-1.035) Urine Protein NEG mg/dL (NEG-TRACE) Urine Glucose (UA) NEG mg/dL (NEG) Urine Ketones NEG mg/dL (NEG) Urine Occult Blood NEG (NEG) Urine Nitrite NEG (NEG) Urine Bilirubin NEG (NEG) Urine Leukocyte Esterase NEG (NEG) Urine RBC 0-3 /hpf (0-3) Urine WBC 0-2 /hpf (0-5) Urine Squamous Epithelial > 8 /hpf (0-5) Cells Urine Renal Epithelial Cells 6-8 /hpf (NONE) Urine Fine Granular Casts 20-24 /lpf (NONE) Microscopic Urinalysis Comment CULT NOT INDICATED Urine Eosinophils NONE SEEN /HPF (NONE SEEN) Urine Osmolality 433 MOSM/KG (300-1300) Urine Random Creatinine 87.2 MG/DL Urine Random Sodium 6 MEQ/L Urine Collection Time 16:10 Nasal Screen MRSA (PCR) MRSA NOT DETECTED (NOT DETECT) Lactic Acid Level 2.7 mmol/L (0.4-2.0) Total Creatine Kinase 163 U/L (26-192) Creatine Kinase MB 15.0 NG/ML (0.5-3.6) Troponin I 0.06 NG/ML (0.02-0.05) Thyroid Stimulating Hormone 0.788 uIU/ML 3rd Gen (0.358-3.740) B-Hydroxybutyrate 0.24 MMOL/L (0.00-0.39) Test 10/10/16 10/10/16 10/10/16 10/10/16 16:35 17:35 19:10 19:51 Blood Gas Puncture Site RT RADIAL RT BRACHIAL Blood Gas Patient Temperature 37.0 37.0 Blood Gas HCO3 13 mmol/L 13 mmol/L (22-26) (22-26) Blood Gas Base Excess -11.8 mmol/L -11.5 mmol/L (-2-2) (-2-2) Blood Gas Oxygen Saturation 95 % (90-100) 95 % (90-100) Arterial Blood pH 7.37 7.39 (7.380-7.420) (7.380-7.420) Arterial Blood Partial 23 mmHg (38-42) 21 mmHg (38-42) Pressure CO2 Arterial Blood Partial 95 mmHg 89 mmHg Pressure O2 (61-120) (61-120) Arterial Blood Oxygen Content 21.2 Vol % 21.1 Vol % (12.0-20.0) (12.0-20.0) Arterial Blood 1.1 % (0-4) 1.2 % (0-4) Carboxyhemoglobin Arterial Blood Methemoglobin 1.3 % (0-2) 1.1 % (0-2) Blood Gas Hemoglobin 15.8 G/DL 15.8 G/DL (12.0-16.0) (12.0-16.0) Oxygen Delivery Device BIPAP BIPAP Blood Gas Ventilator Setting IPAP 12/EPAP 5 12IPAP/5EPAP Blood Gas Inspired Oxygen 60 % 60 % Serum Osmolality 312 MOSM/KG (275-295) Random Cortisol 138.6 MCG/DL Lactic Acid Level 2.1 mmol/L (0.4-2.0) Test 10/10/16 10/11/16 10/11/16 10/11/16 21:40 03:51 04:22 05:34 White Blood Count 24.2 TH/MM3 (4.0-11.0) Red Blood Count 5.42 MIL/MM3 (4.00-5.30) Hemoglobin 15.3 GM/DL (11.6-15.3) Hematocrit 45.2 % (35.0-46.0) Mean Corpuscular Volume 83.4 FL (80.0-100.0) Mean Corpuscular Hemoglobin 28.2 PG (27.0-34.0) Mean Corpuscular Hemoglobin 33.9 % Concent (32.0-36.0) Red Cell Distribution Width 13.4 % (11.6-17.2) Platelet Count 257 TH/MM3 (150-450) Mean Platelet Volume 9.7 FL (7.0-11.0) Prothrombin Time 11.1 SEC (9.8-11.6) Prothromb Time International 1.0 RATIO Ratio Activated Partial 28.7 SEC 56.7 SEC Thromboplast Time (24.3-30.1) (24.3-30.1) Sodium Level 118 MEQ/L 121 MEQ/L (136-145) (136-145) Potassium Level 4.3 MEQ/L 4.3 MEQ/L (3.5-5.1) (3.5-5.1) Chloride Level 86 MEQ/L 89 MEQ/L (98-107) (98-107) Carbon Dioxide Level 15.7 MEQ/L 17.1 MEQ/L (21.0-32.0) (21.0-32.0) Blood Urea Nitrogen 159 MG/DL 151 MG/DL (7-18) (7-18) Creatinine 2.80 MG/DL 2.60 MG/DL (0.50-1.00) (0.50-1.00) Random Glucose 203 MG/DL 268 MG/DL (74-106) (74-106) Calcium Level 8.2 MG/DL 8.3 MG/DL (8.5-10.1) (8.5-10.1) Anion Gap 16 MEQ/L (5-15) 15 MEQ/L (5-15) Estimat Glomerular Filtration 16 ML/MIN (>89) 18 ML/MIN (>89) Rate Hemoglobin A1c 7.4 % (4.3-6.0) Total Creatine Kinase 122 U/L 99 U/L (26-192) (26-192) Creatine Kinase MB 12.7 NG/ML (0.5-3.6) Troponin I 0.07 NG/ML 0.05 NG/ML (0.02-0.05) (0.02-0.05) Blood Gas Puncture Site ART LINE Blood Gas Patient Temperature 37.0 Blood Gas HCO3 14 mmol/L (22-26) Blood Gas Base Excess -10.7 mmol/L (-2-2) Blood Gas Oxygen Saturation 92 % (90-100) Arterial Blood pH 7.38 (7.380-7.420) Arterial Blood Partial 23 mmHg (38-42) Pressure CO2 Arterial Blood Partial 74 mmHg Pressure O2 (61-120) Arterial Blood Oxygen Content 18.7 Vol % (12.0-20.0) Arterial Blood 1.3 % (0-4) Carboxyhemoglobin Arterial Blood Methemoglobin 1.2 % (0-2) Blood Gas Hemoglobin 14.4 G/DL (12.0-16.0) Oxygen Delivery Device BIPAP Blood Gas Ventilator Setting 12IPAP/5EPAP Blood Gas Inspired Oxygen 65 % Test 10/11/16 10/12/16 10/12/16 10/12/16 10:15 00:17 04:23 08:12 Activated Partial 70.7 SEC 65.3 SEC Thromboplast Time (24.3-30.1) (24.3-30.1) Sodium Level 127 MEQ/L 130 MEQ/L 131 MEQ/L (136-145) (136-145) (136-145) Potassium Level 3.6 MEQ/L 3.3 MEQ/L 4.1 MEQ/L (3.5-5.1) (3.5-5.1) (3.5-5.1) Chloride Level 92 MEQ/L 94 MEQ/L 92 MEQ/L (98-107) (98-107) (98-107) Carbon Dioxide Level 20.2 MEQ/L 22.4 MEQ/L 22.6 MEQ/L (21.0-32.0) (21.0-32.0) (21.0-32.0) Anion Gap 15 MEQ/L (5-15) 14 MEQ/L (5-15) 16 MEQ/L (5-15) Blood Urea Nitrogen 141 MG/DL 137 MG/DL 134 MG/DL (7-18) (7-18) (7-18) Creatinine 2.40 MG/DL 2.40 MG/DL 2.50 MG/DL (0.50-1.00) (0.50-1.00) (0.50-1.00) Estimat Glomerular Filtration 19 ML/MIN (>89) 19 ML/MIN (>89) 18 ML/MIN (>89) Rate Random Glucose 218 MG/DL 184 MG/DL 205 MG/DL (74-106) (74-106) (74-106) Calcium Level 8.3 MG/DL 8.2 MG/DL 8.3 MG/DL (8.5-10.1) (8.5-10.1) (8.5-10.1) Phosphorus Level 5.7 MG/DL (2.5-4.9) Magnesium Level 2.7 MG/DL (1.5-2.5) White Blood Count 22.8 TH/MM3 (4.0-11.0) Red Blood Count 4.75 MIL/MM3 (4.00-5.30) Hemoglobin 13.3 GM/DL (11.6-15.3) Hematocrit 39.3 % (35.0-46.0) Mean Corpuscular Volume 82.6 FL (80.0-100.0) Mean Corpuscular Hemoglobin 27.9 PG (27.0-34.0) Mean Corpuscular Hemoglobin 33.8 % Concent (32.0-36.0) Red Cell Distribution Width 14.1 % (11.6-17.2) Platelet Count 205 TH/MM3 (150-450) Mean Platelet Volume 9.8 FL (7.0-11.0) . Result Diagram: 10/12/16 0812 10/12/16 0423 Microbiology Microbiology Date/Time Procedure Status Source Growth 10/10/16 12:15 Aerobic Blood Culture - Preliminary Resulted Blood Peripheral NO GROWTH IN 2 DAYS 10/10/16 12:15 Anaerobic Blood Culture - Preliminary Resulted Blood Peripheral NO GROWTH IN 2 DAYS 10/10/16 12:20 Aerobic Blood Culture - Preliminary Resulted Blood Peripheral Gram Negative Bunny 10/10/16 12:20 Anaerobic Blood Culture - Preliminary Resulted Blood Peripheral NO GROWTH IN 2 DAYS . Imaging Last Impressions Chest X-Ray 10/10/16 1212 Signed Impressions: Service Date/Time: Monday, October 10, 2016 12:28 - CONCLUSION: 1. Bilateral perihilar airspace disease likely pulmonary edema. 2. Cardiomegaly. Van Aburto MD Renal Ultrasound 10/10/16 0000 Signed Impressions: Service Date/Time: Monday, October 10, 2016 16:53 - CONCLUSION: 1. No evidence of hydronephrosis. 2. Increased echogenicity and cortical thinning consistent with medical renal disease. 3. Multiple small bilateral cystic structures. Mayco Diaz MD . Procedures * Arterial line * BiPAP * Axiallary central venous line placement . Patient/Family Conference Present at Family Conference: Niece -- Nicole Wilkinson. . Family Conference Time (mins): 25 Family Conference Location: Telephone Issues Discussed: * Palliative care role, purpose, approach * Additional medical, psychosocial, and spiritual history * Patients general health, functional status, and cognitive changes in the months leading up to the current hospitalization * Family understanding of the current medical problems * Family understanding of prognosis * Patients goals of care as best understood from advance directives and/or conversations and/or values * Current medical treatment options and benefits/burdens of those options * Likely scenarios comparing ongoing aggressive care with a transition to comfort measures only * Questions answered to the best of my ability . Assessment and Plan Disease Oriented Problem List: (1) Acute respiratory failure with hypoxia (2) Metabolic acidosis, increased anion gap (3) Acute renal failure superimposed on stage 3 chronic kidney disease (4) Atrial fibrillation with RVR (5) Severe sepsis Comment: Gram neg bunny in blood. . (6) Hyponatremia (7) Pulmonary edema Symptom Scale: (1) Pain 0-10 Scale: 0 Comment: Denies pain. Possible sources of discomfort include prolonged bedbound status; BiPap mask; vascular access lines; beyer catheter; restraints. . . (2) Dyspnea 0-10 Scale: Unable to quantify Comment: Requiring BiPAP and still feeling dyspneic. . (3) Anxiety 0-10 Scale: Unable to quantify Comment: Acknowledges feeling fearful but unable to quantify. . (4) Depression 0-10 Scale: Unable to quantify Comment: The patient's sister (who she had been living with for many years) about 4 weeks prior to this hospital admission. . Pertinent Non-Medical Issues Psychosocial: Sister who she lived with for years, about 4 weeks prior to admission. Niece -- Nicole -- is her only remaining close family. Spiritual: Comes from a [employer] tradition. Most recently belonged to a "spiritual adventism" in [place], [place] Legal: Has provided a verbal advance directive regarding choice of health care surrogate and health care preferences. Ethical issues impacting care: No known ethical issues. Patient is capacitated at this time. . Important Contacts Nicole Jaja (niece and designated health care surrogate) -- . Prognosis Patient is currently in multi-organ failure. Current problems include sepsis; shock requiring pressor support; respiratory failure requiring increasing BiPAP support; a fib with RVR; and failing renal function. Unless she responds to treatment rapidly, will anticipate in the ICU. 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 . Code Status: No Code Plan == Code Status : NO CODE == Decision maker: Patient is currently capacitated to make her own health care decisions. There is a high probability that she will lose capacity to make such decisions within the next 24-48 hours. Should she become incapacitated, she has verbally designated her niece-- Nicole Wilkinson -- as her health care surrogate. == Goals of medical treatment: At this time, patient would like aggressive care to continue short of intubation, mechanical ventilation, shock, and chest compressions. == Pain: Patient complains of discomfort from the BiPAP mask but otherwise is denying pain at this time. == Dyspnea: Patient continues to feel dyspneic even with BiPAP in place and apparent adequate O2 saturations. The patient's dyspnea could probably be greatly helped by low-dose opiate or low-dose benzodiazepine. However, due to her fragile status particularly with her blood pressures and respirations, I will leave a decision regarding the use of these agents in the hands of the resource conservation specialist. As little as 2 mg of IV morphine might significantly help her symptoms. However, since she does not want to be intubated, if respiratory status worsened with the morphine we really have nothing further to offer her. == Anxiety: Patient quickly admits that she is fearful. As noted above, she could benefit from either low-dose opiate or low-dose benzo but both these drugs present risks given her fragile status. == Depression: The patient's sister (with whom she had been living for many years) from breast cancer about 4 weeks prior to this hospital admission. Niece reports that the patient had been quite grief stricken and depressed. Should the patient survives the ICU, we may want to consider antidepressant therapy. == Patient understands that we will continue to fight to get her better as long as she wishes. She also knows that at any time should she wish to focus on comfort we can change her goals. She understands that a transition to focusing on comfort measures would likely lead to her demise. At such time that she would opt for comfort measures, she would certainly be eligible for hospice services. == Palliative care will continue to follow to assist with symptom management and to further clarify goals of medical treatment as the clinical course evolves. . Thank you for the opportunity to participate in the care of Ms. Christie. . Attestation To help prompt me to consider important information that might be impacting today's encounter and assessment, information from prior notes written by myself or my colleagues may have been "brought forward" into today's note. My signature on this note, however, is an attestation that I personally performed the exam, history, and/or decision-making noted today, and, unless otherwise indicated, the interactions with patient, family, and staff as well as the review of records all occurred today. I also attest that the listed assessment and stated plan reflect my best clinical judgment today based on the combination of historical information, prior notes, and today's exam/ interactions. When time spent is documented, it refers only to time spent today by the signer, or if indicated, combined time spent today by collaborating physician/nurse practitioner. . Faraz Murillo MD Oct 12, 2016 17:24
[2016-10-12] MEDS: HEPARIN-D5W INJ 250 ML IV SCH (20:23)
[2016-10-12] MEDS: CEFEPIME INJ 1,000 MG in SODIUM CHLORIDE 0.9% INJ 100 ML IV SCH (21:15)
[2016-10-12] MEDS: LEVOFLOXACIN 750 MG PREMIX INJ 150 ML IV SCH (22:07)
[2016-10-12] MEDS ORDERED: VANCOMYCIN INJ 1,250 MG in SODIUM CHLOR 0.9% 250 ML INJ 250 ML IV SCH (23:00)
[2016-10-13] VITALS (26 sets, daily range): BP systolic 42–131; BP diastolic 33–86; PULSE 92–130; RESP 6–23; TEMP 97.1–98.4; O2SAT 59–94
[2016-10-13] MEDS ORDERED: LORazepam 2 MG/ML VIAL IV PUSH ONE
[2016-10-13] MEDS ORDERED: MORPHINE SULFATE 8 MG/ML INJ IV PUSH ONE
[2016-10-13] MEDS: INSULIN NovoLIN REGULAR SUPPLEMENTAL SCALE SQ SCH ×2 (00:22→04:00)
[2016-10-13] MEDS: RESP: ALBUTEROL 2.5 MG/IPRATROPIUM 0.5 MG NEB (SCH) INH ×2 (03:34→07:27)
[2016-10-13] MEDS: DEXTROSE 10% INJ 1,000 ML IV SCH (05:55)
[2016-10-13] MEDS ORDERED: FUROSEMIDE 40 MG/4 ML VIAL IV PUSH ONE (06:15)
[2016-10-13 06:17] LABS: HEMATOCRIT 38.8 % (35.0-46.0); MEAN CELL VOLUME 83.7 FL (80.0-100.0); MEAN CORPUSCULAR HEMOGLOBIN 28.2 PG (27.0-34.0); MEAN CORPUSCULAR HGB CONC 33.7 % (32.0-36.0); PLATELET COUNT 176 TH/MM3 (150-450); RED BLOOD COUNT 4.64 MIL/MM3 (4.00-5.30); RED CELL DISTRIBUTION WIDTH 13.8 % (11.6-17.2); REVIEW FLAG FINAL; WHITE BLOOD COUNT 24.5 TH/MM3 (4.0-11.0)
[2016-10-13 06:26] LABS: POTASSIUM 3.7 MEQ/L (3.5-5.1)
--- NOTE | 2016-10-13 06:28 | HHI.CCPN ---
Subjective Remarks/Hospital Course Hospital Course: 81-year-old female with known history of hypertension, hyperlipidemia , diabetes, arthritis, chronic obstructive pulmonary disease, recent left upper lobe infiltrate who presented to the hospital because of weakness, falls, shortness of breath and dyspnea. The patient herself is in critical condition and acute respiratory failure with BiPAP at this time. It was difficult to obtain information from the patient, information was limited due to her clinical condition. Upon review medical records, discussion with ER physician, nursing staff and patient is being worked up in outpatient setting by Dr. Tan mckay for chronic left lung infiltrate. Patient did undergo bronchoscopy on in which did not indicate any malignant cells. Does show scattered inflammatory cells. Patient indicates that she has been getting short of breath more recently. She has been falling more frequently. She does live at home by herself, family does not live with her however she does have a niece that lives nearby and checks on her frequently. Patient states that she fell this morning in the bath and had been short of breath and weak since then. The niece checked on her and because of her condition she brought her to the hospital for evaluation. The patient was found to have severe multiple medical issues. With acute respiratory failure, new onset atrial fibrillation with RVR , acute renal failure, severe metabolic acidosis with increased anion gap, possible congestive heart failure. Without emergent/critical care management at this time patient would likely not survive. Patient will be admitted to ICU for continued care and further workup to evaluate for possible etiology of her symptoms and clinical findings Subjective: 10/11: worsening fio2 overnight. required initiation of vasopressors. now in shock. Cr slightly improved. overall decline. remains on BiPAP. 10/12: back on phenylephrine overnight. given 2 doses lasix for volume overload, rising CVP, increasing fio2 on BiPAP with bibasilar crackles. still declining overall clinical course. sputum growing GNRs. 10/13: respiratory failure persists. fio2 up to 100% now. tachypneic. still in distress. still requiring vasopressor for bp support. still in septic shock. goals still aggressive. palliative met with patient yesterday and confirmed aggressive goals. overnight required one dose of iv morphine for severe distress. microbiology not speciated yet, but no resistance markers on GNR. Objective Vital Signs Date Time Temp Pulse Resp B/P Pulse Ox O2 Delivery O2 Flow Rate FiO2 10/13/16 05:00 122 15 127/81 91 124/66 10/13/16 04:00 97.8 10/13/16 04:00 100 10/12/16 19:00 Bi-Pap 10/10/16 14:31 4 Intake and Output 10/12/16 10/12/16 10/13/16 08:00 16:00 00:00 Intake Total 357 ml 722 ml 650 ml Output Total 600 ml 650 ml 450 ml Balance -243 ml 72 ml 200 ml Result Diagram: 10/13/16 0600 10/12/16 0423 Imaging Last Impressions Chest X-Ray 10/10/16 1212 Signed Impressions: Service Date/Time: Monday, October 10, 2016 12:28 - CONCLUSION: 1. Bilateral perihilar airspace disease likely pulmonary edema. 2. Cardiomegaly. Van Aburto MD Objective Remarks GENERAL: Frail, elderly patient critically ill and in persistent acute respiratory distress. alert and orientated HEENT: Head is normocephalic without any lesions or masses noted. Facial features are symmetric. Pupils equal round reactive to light. Unable to examine oropharyngeal secondary to BiPAP mask NECK: Trachea midline no deviation. No JVD CARDIAC: tachycardic rate, irregularly irregular rhythm. afib by tele. LUNGS: Crackles noted bilateral bases. + accessory muscle use. tachypneic. increasing fio2 to 100%. increasing support to 14/7 ABDOMEN: Soft, nontender. Nondistended. no guarding. EXTREMITIES: 1+ pitting edema noted bilateral lower extremity, pulses are equal bilaterally. NEUROLOGY: RASS -1. fc x 4. A/P Problem List: (1) Severe sepsis ICD Code: A41.9 Status: Acute (2) Acute respiratory failure with hypoxia ICD Code: J96.01 Status: Acute (3) Acute renal failure superimposed on stage 3 chronic kidney disease ICD Code: N17.9 Status: Acute (4) Metabolic acidosis, increased anion gap ICD Code: E87.2 Status: Acute (5) Leukocytosis ICD Code: D72.829 Status: Acute (6) Hyponatremia ICD Code: E87.1 Status: Acute (7) Atrial fibrillation with RVR ICD Code: I48.91 Status: Acute (8) Diabetes type 2, uncontrolled ICD Code: E11.65 Status: Acute (9) Urinary tract infection ICD Code: N39.0 Status: Acute (10) Elevated d-dimer ICD Code: R79.89 Status: Acute Assessment and Plan Assessment: 81yF with shortness of breath, recurrent severe pneumonia, septic shock complicated by volume overload and evidence of CHF exacerbation (likely with preserved EF or combination systolic/diastolic dysfunction). Pulmonary status declining. remains on vasopressors for end-organ perfusion. Patient and family continuing to request DNR/DNI status, but continues with aggressive care for now. Palliative on board. Overall still declining. I am not sure if she can survive this. remains very critically ill and worse than yesterday. Acute hypoxic respiratory failure- persistent, worsening. -- continue BiPAP -- wean fio2 for spo2 > 90% -- not improving, actually continues to worsen. continue supportive care. patient is DNI. Community Acquired Pneumonia -- history of multiple recent antibiotics, but family is unsure of which ones. d /c Vancomycin. Continue Cefepime/Levaquin to cover pseudomonas in this COPD patient as well as more resistant bacteria given recent exposure to abx -- sputum culture unable to be obtained secondary to her respiratory distress. -- f/u blood cultures Septic Shock -- abx as above -- unable to give additional ivf given CHF. difficult position to be in physiologically: requires vasopressors for end-organ perfusion, but additional volume could be catastrophic to her pulmonary status. -- continue phenylephrine for map > 65 mmHg. avoiding the use of more beta agonists given Afib RVR. Hyponatremia -- continue to trend q6h sodiums -- improving appropriately -- goal slow improvements, 10 meq/24h. Intravascular volume overload -- lasix 40mg iv x 1 this morning. Congestive Heart Failure, unknown type -- d/c ivf hydration 10/11. gentle diuresis today. -- trend CVP -- 2d echo 10/10: preserved LF function estimated at 50%, mild-moderate TR, small pericardial effusion Troponin elevation/Type II NSTEMI secondary to demand ischemia -- downtrending troponins, unlikely to be ACS. -- heparin drip -- too unstable and high risk for any coronary intervention at this point. will manage conservatively Atrial Fibrillation with Rapid Ventricular Response -- cannot rate control given sepsis and concern for early hemodynamic instability -- anticoagulate with heparin drip Lactic Acidosis- improving Anion-gap metabolic acidosis- persistent -- most likely secondary to sepsis, complicated by CHF. -- abg prn, daily bmp. Acute Kidney Injury- persistent. -- severe, may require renal replacement therapy, but unlikely to be a good dialysis candidate given overall clinical condition -- FENa 0.2%. prerenal 7/8 -- daily bmp -- diuresis despite jaylyn. Severe Hyperglycemia- improved control. -- continue Levemir 10 units -- continue high dose SSI q4h -- continue d10w for continued dextrose in this NPO patient, low dose 25cc/hr. -- not DKA as patient has no keturia and essentially negative beta-hydroxy- buterate. SCDs, protonix NPO while on BiPAP with high concern for respiratory failure. Overall Impression: Frail elderly female with a declining course over last 6 months now in multiorgan system failure. Unlikely to have favorable outcome. Continue to update family daily. Very critically ill This patient remains critically ill with one or more organ systems which are or may become a threat to life. I have spent in excess of 30 minutes discontinuously in the care and management of this patient. This time is exclusive of procedures, and includes, but is not limited to, evaluation of the patient, review of the medical record, discussions with family, consultants, nursing staff, or respiratory therapy, and documentation in the medical record. Problem Qualifiers (1) Leukocytosis: Qualified Code: D72.829 - Leukocytosis, unspecified type Reymundo Hinojosa MD Oct 13, 2016 06:28
[2016-10-13 06:29] LABS: BICARBONATE 20.6 MEQ/L (21.0-32.0)
[2016-10-13 06:30] LABS: APTT (PATIENT) 54.4 SEC (24.3-30.1)
[2016-10-13] MEDS: LORazepam 2 MG/ML VIAL IV PUSH PRN ×2 (09:36→15:46)
[2016-10-13] MEDS: MORPHINE SULFATE 4 MG/ML INJ IV PUSH PRN ×3 (12:15→15:19)
[2016-10-13 14:11] LABS: UR UREA/CREAT RATIO 20.35 mg/mg (())
--- NOTE | 2016-10-13 14:16 | HHI.HCPN ---
Reason for visit a. To assist with evaluation and management of symptoms including: dyspnea; anxiety; depression b. To assist medical decision maker(s) with: better understanding of current medical conditions; weighing benefits/burdens of medical treatment options; making medical treatment decisions. . Subjective/Interval History Primary nurse reports patient was awake and alert earlier today. She vomited into her BiPAP mask this AM making continuation of the BiPAP challenging. In the mean time, the patient continues to decline. WBC is increased. Renal function is worse. 02 needs have increased. Blood has grown out Serratia. She remained pressor dependent. A conversation with the patient took place regarding ongoing aggressive care vs transitioning to comfort care. She indicated a desire to transition to comfort care. This was confirmed when the patient's niece (the health care surrogate) arrived. Comfort medications were ordered by the circle shear operator. Pressors and antibiotics were stopped. BiPAP was discontinued with patient remaining on high flow nasal 02 with a non-rebreather mask. At time of my visit, patient appears comfortable. She does not awaken to voice/ exam. She received 4 mg of iv morphine about 90 minutes before my visit. She received 4 mg of iv lorazepam about 3 hours before my visit. . Family/friend interactions Niece had left bedside just prior to my arrival. I called by phone -- no answer. I left message to call me back. . Advance Directives Living Will: Copy in medical record Health Care Surrogate: Copy in medical record Durable Power of Back Roller: Never completed Advance Directive Specifics Date completed: The patient was able to provide a verbal advance directive on 10/11/16 and 10/12. . Health Care Surrogate(s): The patient has verbally declared that she wants her niece-- Nicole Wilkinson - - to serve as her health care surrogate. I personally witnessed this declaration as did her primary nurse on 10/12/16- Tata. .- Documented care wishes: The patient has also told the medical team as well as her niece about specific health care goals and preferences. She does not want intubation and mechanical ventilation. She does not want shock or chest compressions. She is interested in continuing with aggressive care short of resuscitation efforts. She has confirmed these wishes in front of me on 10/12/16.. . Significant change in goals: Patient spoke with her nurse-- Tata -- her niece. They decided to transition to "comfort measures only." . Objective Vital Signs Date Time Temp Pulse Resp B/P Pulse Ox O2 Delivery O2 Flow Rate FiO2 10/13/16 13:00 126 7 75/52 90 110/52 10/13/16 13:00 128 75/52 106/54 10/13/16 12:00 97.1 126 11 92/52 89 116/52 10/13/16 12:00 126 92/52 116/52 10/13/16 12:00 126 10/13/16 11:00 126 8 81/59 89 106/50 10/13/16 11:00 124 10/13/16 11:00 126 81/59 106/50 10/13/16 10:00 122 10/13/16 10:00 124 86/56 100/52 10/13/16 10:00 122 9 86/56 88 94/52 10/13/16 09:00 130 10/13/16 09:00 124 127/70 126/56 10/13/16 09:00 124 22 127/70 88 126/56 10/13/16 08:35 88 High Flow Nasal Cannula 30.00 100 10/13/16 08:30 Bi-Pap 10/13/16 08:00 118 131/68 110/52 10/13/16 08:00 118 10/13/16 08:00 118 10 131/68 94 110/52 10/13/16 07:29 93 100 10/13/16 07:00 94 Bi-Pap 100 10/13/16 07:00 120 98/65 120/64 10/13/16 07:00 98.0 120 12 98/65 92 120/64 10/13/16 06:00 118 9 114/67 91 102/58 10/13/16 06:00 118 10/13/16 06:00 118 114/67 102/58 10/13/16 05:00 122 15 127/81 91 124/66 10/13/16 05:00 122 127/81 124/66 10/13/16 04:00 120 90/70 100/52 10/13/16 04:00 97.8 120 10 90/70 92 100/52 10/13/16 04:00 120 10/13/16 04:00 91 100 10/13/16 03:00 114 11 123/70 91 98/56 10/13/16 03:00 114 123/70 98/56 10/13/16 02:00 112 104/70 104/52 10/13/16 02:00 112 11 104/70 92 104/52 10/13/16 02:00 112 10/13/16 01:02 90 90 10/13/16 01:00 118 20 101/72 91 104/52 10/13/16 01:00 118 101/72 104/52 10/13/16 00:00 122 10/13/16 00:00 97.4 122 23 111/73 91 108/52 10/13/16 00:00 122 111/73 108/52 10/12/16 23:00 112 92/71 100/50 10/12/16 23:00 112 13 92/71 91 100/50 10/12/16 22:00 118 133/68 112/54 10/12/16 22:00 118 21 133/68 92 112/54 10/12/16 22:00 118 10/12/16 21:58 91 80 10/12/16 21:00 112 125/68 104/50 10/12/16 21:00 112 14 125/68 90 104/50 10/12/16 20:00 122 119/75 122/56 10/12/16 20:00 122 10/12/16 20:00 122 21 119/75 92 122/56 10/12/16 19:36 92 80 10/12/16 19:00 118 24 126/80 92 130/58 10/12/16 19:00 118 126/80 130/58 10/12/16 19:00 92 Bi-Pap 80 10/12/16 18:01 114 13 127/76 92 104/52 10/12/16 18:00 112 10/12/16 18:00 114 127/76 104/52 10/12/16 18:00 114 13 127/76 92 104/52 10/12/16 17:19 92 80 10/12/16 17:00 118 102/73 128/58 10/12/16 17:00 118 22 102/73 92 128/58 10/12/16 17:00 118 10/12/16 16:00 120 10/12/16 16:00 97.5 118 18 85/62 92 114/54 10/12/16 16:00 118 85/62 114/54 10/12/16 15:24 92 80 10/12/16 15:00 122 10/12/16 15:00 120 21 101/68 93 130/56 10/12/16 15:00 120 101/68 130/56 10/12/16 14:00 120 122/71 134/58 10/12/16 14:00 120 10/12/16 14:00 120 25 122/71 94 134/58 Intake & Output 10/13/16 10/13/16 07:00 19:00 Intake Total 1400 ml Output Total 650 ml Balance 750 ml IV Total 1400 ml Output Urine Total 650 ml # Bowel Movements 0 . Physical Exam CONSTITUTIONAL/GENERAL: This is an adequately nourished patient, sedated, in an ICU bed. She does not awaken to voice/exam. No evidence of distress. TUBES/LINES/DRAINS: Left radial Arterial line, periperhal IV; beyer catheter; axillary central venous catheter SKIN: No jaundice, rashes, or lesions. No wounds seen anteriorly. Skin temperature appropriate. Not diaphoretic. EYES: Pupils equal and round. No scleral icterus. No injection or drainage. Fundi not examined. ENT: Nose without bleeding or purulent drainage. NECK: Trachea midline. CARDIOVASCULAR: Irregularly irregular rhythm; tachycardic; without murmurs, gallops, or rubs. No JVD. Peripheral pulses weak. RESPIRATORY/CHEST: Symmetric, respirations . Bilateral crackles. Breath sounds equal bilaterally. No wheezes. GASTROINTESTINAL: Abdomen soft, non-tender, nondistended. No hepato-splenomegaly , or palpable masses. No guarding. Bowel sounds hypoactive. GENITOURINARY: Without palpable bladder distension. Beyer catheter in place. MUSCULOSKELETAL: Extremities without clubbing, cyanosis. 1+ edema. No calf tenderness. No mottling or clubbing. LYMPHATICS: Not examined. NEUROLOGICAL: Sedated. Does not awaken to voice/exam. PSYCHIATRIC: Unable to assess due to level of responsiveness. . . Diagnostic Tests Laboratory Laboratory Tests Test 10/10/16 10/10/16 10/10/16 10/10/16 16:10 16:16 16:20 16:35 Urine Collection Type CLEAN CATCH Urine Color YELLOW (YELLW/STRAW) Urine Turbidity CLEAR (CLEAR) Urine pH 5.5 (5.0-8.5) Urine Specific Mayer 1.015 (1.002-1.035) Urine Protein NEG mg/dL (NEG-TRACE) Urine Glucose (UA) NEG mg/dL (NEG) Urine Ketones NEG mg/dL (NEG) Urine Occult Blood NEG (NEG) Urine Nitrite NEG (NEG) Urine Bilirubin NEG (NEG) Urine Leukocyte Esterase NEG (NEG) Urine RBC 0-3 /hpf (0-3) Urine WBC 0-2 /hpf (0-5) Urine Squamous Epithelial > 8 /hpf (0-5) Cells Urine Renal Epithelial Cells 6-8 /hpf (NONE) Urine Fine Granular Casts 20-24 /lpf (NONE) Microscopic Urinalysis Comment CULT NOT INDICATED Urine Eosinophils NONE SEEN /HPF (NONE SEEN) Urine Osmolality 433 MOSM/KG (300-1300) Urine Random Creatinine 87.2 MG/DL Urine Random Sodium 6 MEQ/L Urine Collection Time 16:10 Nasal Screen MRSA (PCR) MRSA NOT DETECTED (NOT DETECT) Sodium Level 117 MEQ/L (136-145) Potassium Level 4.2 MEQ/L (3.5-5.1) Chloride Level 83 MEQ/L (98-107) Carbon Dioxide Level 15.7 MEQ/L (21.0-32.0) Anion Gap 18 MEQ/L (5-15) Blood Urea Nitrogen 166 MG/DL (7-18) Creatinine 2.90 MG/DL (0.50-1.00) Estimat Glomerular Filtration 16 ML/MIN (>89) Rate Random Glucose 230 MG/DL (74-106) Lactic Acid Level 2.7 mmol/L (0.4-2.0) Calcium Level 8.3 MG/DL (8.5-10.1) Total Creatine Kinase 163 U/L (26-192) Creatine Kinase MB 15.0 NG/ML (0.5-3.6) Troponin I 0.06 NG/ML (0.02-0.05) Thyroid Stimulating Hormone 0.788 uIU/ML 3rd Gen (0.358-3.740) B-Hydroxybutyrate 0.24 MMOL/L (0.00-0.39) Blood Gas Puncture Site RT RADIAL Blood Gas Patient Temperature 37.0 Blood Gas HCO3 13 mmol/L (22-26) Blood Gas Base Excess -11.8 mmol/L (-2-2) Blood Gas Oxygen Saturation 95 % (90-100) Arterial Blood pH 7.37 (7.380-7.420) Arterial Blood Partial 23 mmHg (38-42) Pressure CO2 Arterial Blood Partial 95 mmHg Pressure O2 (61-120) Arterial Blood Oxygen Content 21.2 Vol % (12.0-20.0) Arterial Blood 1.1 % (0-4) Carboxyhemoglobin Arterial Blood Methemoglobin 1.3 % (0-2) Blood Gas Hemoglobin 15.8 G/DL (12.0-16.0) Oxygen Delivery Device BIPAP Blood Gas Ventilator Setting IPAP 12/EPAP 5 Blood Gas Inspired Oxygen 60 % Test 10/10/16 10/10/16 10/10/16 10/10/16 17:35 19:10 19:51 21:40 Serum Osmolality 312 MOSM/KG (275-295) Random Cortisol 138.6 MCG/DL Lactic Acid Level 2.1 mmol/L (0.4-2.0) Blood Gas Puncture Site RT BRACHIAL Blood Gas Patient Temperature 37.0 Blood Gas HCO3 13 mmol/L (22-26) Blood Gas Base Excess -11.5 mmol/L (-2-2) Blood Gas Oxygen Saturation 95 % (90-100) Arterial Blood pH 7.39 (7.380-7.420) Arterial Blood Partial 21 mmHg (38-42) Pressure CO2 Arterial Blood Partial 89 mmHg Pressure O2 (61-120) Arterial Blood Oxygen Content 21.1 Vol % (12.0-20.0) Arterial Blood 1.2 % (0-4) Carboxyhemoglobin Arterial Blood Methemoglobin 1.1 % (0-2) Blood Gas Hemoglobin 15.8 G/DL (12.0-16.0) Oxygen Delivery Device BIPAP Blood Gas Ventilator Setting 12IPAP/5EPAP Blood Gas Inspired Oxygen 60 % White Blood Count 24.2 TH/MM3 (4.0-11.0) Red Blood Count 5.42 MIL/MM3 (4.00-5.30) Hemoglobin 15.3 GM/DL (11.6-15.3) Hematocrit 45.2 % (35.0-46.0) Mean Corpuscular Volume 83.4 FL (80.0-100.0) Mean Corpuscular Hemoglobin 28.2 PG (27.0-34.0) Mean Corpuscular Hemoglobin 33.9 % Concent (32.0-36.0) Red Cell Distribution Width 13.4 % (11.6-17.2) Platelet Count 257 TH/MM3 (150-450) Mean Platelet Volume 9.7 FL (7.0-11.0) Prothrombin Time 11.1 SEC (9.8-11.6) Prothromb Time International 1.0 RATIO Ratio Activated Partial 28.7 SEC Thromboplast Time (24.3-30.1) Sodium Level 118 MEQ/L (136-145) Potassium Level 4.3 MEQ/L (3.5-5.1) Chloride Level 86 MEQ/L (98-107) Carbon Dioxide Level 15.7 MEQ/L (21.0-32.0) Blood Urea Nitrogen 159 MG/DL (7-18) Creatinine 2.80 MG/DL (0.50-1.00) Random Glucose 203 MG/DL (74-106) Calcium Level 8.2 MG/DL (8.5-10.1) Anion Gap 16 MEQ/L (5-15) Estimat Glomerular Filtration 16 ML/MIN (>89) Rate Hemoglobin A1c 7.4 % (4.3-6.0) Total Creatine Kinase 122 U/L (26-192) Creatine Kinase MB 12.7 NG/ML (0.5-3.6) Troponin I 0.07 NG/ML (0.02-0.05) Test 10/11/16 10/11/16 10/11/16 10/11/16 03:51 04:22 05:34 10:15 Sodium Level 121 MEQ/L 127 MEQ/L (136-145) (136-145) Potassium Level 4.3 MEQ/L 3.6 MEQ/L (3.5-5.1) (3.5-5.1) Chloride Level 89 MEQ/L 92 MEQ/L (98-107) (98-107) Carbon Dioxide Level 17.1 MEQ/L 20.2 MEQ/L (21.0-32.0) (21.0-32.0) Anion Gap 15 MEQ/L (5-15) 15 MEQ/L (5-15) Blood Urea Nitrogen 151 MG/DL 141 MG/DL (7-18) (7-18) Creatinine 2.60 MG/DL 2.40 MG/DL (0.50-1.00) (0.50-1.00) Estimat Glomerular Filtration 18 ML/MIN (>89) 19 ML/MIN (>89) Rate Random Glucose 268 MG/DL 218 MG/DL (74-106) (74-106) Calcium Level 8.3 MG/DL 8.3 MG/DL (8.5-10.1) (8.5-10.1) Total Creatine Kinase 99 U/L (26-192) Troponin I 0.05 NG/ML (0.02-0.05) Activated Partial 56.7 SEC 70.7 SEC Thromboplast Time (24.3-30.1) (24.3-30.1) Blood Gas Puncture Site ART LINE Blood Gas Patient Temperature 37.0 Blood Gas HCO3 14 mmol/L (22-26) Blood Gas Base Excess -10.7 mmol/L (-2-2) Blood Gas Oxygen Saturation 92 % (90-100) Arterial Blood pH 7.38 (7.380-7.420) Arterial Blood Partial 23 mmHg (38-42) Pressure CO2 Arterial Blood Partial 74 mmHg Pressure O2 (61-120) Arterial Blood Oxygen Content 18.7 Vol % (12.0-20.0) Arterial Blood 1.3 % (0-4) Carboxyhemoglobin Arterial Blood Methemoglobin 1.2 % (0-2) Blood Gas Hemoglobin 14.4 G/DL (12.0-16.0) Oxygen Delivery Device BIPAP Blood Gas Ventilator Setting 12IPAP/5EPAP Blood Gas Inspired Oxygen 65 % Test 10/12/16 10/12/16 10/12/16 10/13/16 00:17 04:23 08:12 06:00 Sodium Level 130 MEQ/L 131 MEQ/L 129 MEQ/L (136-145) (136-145) (136-145) Potassium Level 3.3 MEQ/L 4.1 MEQ/L 3.7 MEQ/L (3.5-5.1) (3.5-5.1) (3.5-5.1) Chloride Level 94 MEQ/L 92 MEQ/L 93 MEQ/L (98-107) (98-107) (98-107) Carbon Dioxide Level 22.4 MEQ/L 22.6 MEQ/L 20.6 MEQ/L (21.0-32.0) (21.0-32.0) (21.0-32.0) Anion Gap 14 MEQ/L (5-15) 16 MEQ/L (5-15) 15 MEQ/L (5-15) Blood Urea Nitrogen 137 MG/DL 134 MG/DL 136 MG/DL (7-18) (7-18) (7-18) Creatinine 2.40 MG/DL 2.50 MG/DL 2.90 MG/DL (0.50-1.00) (0.50-1.00) (0.50-1.00) Estimat Glomerular Filtration 19 ML/MIN (>89) 18 ML/MIN (>89) 16 ML/MIN (>89) Rate Random Glucose 184 MG/DL 205 MG/DL 158 MG/DL (74-106) (74-106) (74-106) Calcium Level 8.2 MG/DL 8.3 MG/DL 8.5 MG/DL (8.5-10.1) (8.5-10.1) (8.5-10.1) Activated Partial 65.3 SEC 54.4 SEC Thromboplast Time (24.3-30.1) (24.3-30.1) Phosphorus Level 5.7 MG/DL (2.5-4.9) Magnesium Level 2.7 MG/DL (1.5-2.5) White Blood Count 22.8 TH/MM3 24.5 TH/MM3 (4.0-11.0) (4.0-11.0) Red Blood Count 4.75 MIL/MM3 4.64 MIL/MM3 (4.00-5.30) (4.00-5.30) Hemoglobin 13.3 GM/DL 13.1 GM/DL (11.6-15.3) (11.6-15.3) Hematocrit 39.3 % 38.8 % (35.0-46.0) (35.0-46.0) Mean Corpuscular Volume 82.6 FL 83.7 FL (80.0-100.0) (80.0-100.0) Mean Corpuscular Hemoglobin 27.9 PG 28.2 PG (27.0-34.0) (27.0-34.0) Mean Corpuscular Hemoglobin 33.8 % 33.7 % Concent (32.0-36.0) (32.0-36.0) Red Cell Distribution Width 14.1 % 13.8 % (11.6-17.2) (11.6-17.2) Platelet Count 205 TH/MM3 176 TH/MM3 (150-450) (150-450) Mean Platelet Volume 9.8 FL 9.5 FL (7.0-11.0) (7.0-11.0) . Result Diagram: 10/13/16 0600 10/13/16 0600 Microbiology Microbiology Date/Time Procedure Status Source Growth 10/12/16 23:55 Legionella Antigen - Final Complete Urine Catheterized Urine PRESUMPTIVE NEGATIVE FOR LEGIONELLA P... 10/12/16 23:55 Streptococcus pneumoniae Antigen (M - Final Complete Urine Catheterized Urine PRESUMPTIVE NEGATIVE FOR STREPTOCOCCU... Imaging Last Impressions Chest X-Ray 10/10/16 1212 Signed Impressions: Service Date/Time: Monday, October 10, 2016 12:28 - CONCLUSION: 1. Bilateral perihilar airspace disease likely pulmonary edema. 2. Cardiomegaly. Van Aburto MD Renal Ultrasound 10/10/16 0000 Signed Impressions: Service Date/Time: Monday, October 10, 2016 16:53 - CONCLUSION: 1. No evidence of hydronephrosis. 2. Increased echogenicity and cortical thinning consistent with medical renal disease. 3. Multiple small bilateral cystic structures. Mayco Diaz MD . Procedures * Arterial line * BiPAP * Axillary central venous line placement . Assessment and Plan Disease Oriented Problem List: (1) Acute respiratory failure with hypoxia (2) Metabolic acidosis, increased anion gap (3) Acute renal failure superimposed on stage 3 chronic kidney disease (4) Atrial fibrillation with RVR (5) Severe sepsis Comment: Blood culture positive for Serratia. . . . (6) Hyponatremia (7) Pulmonary edema Symptom Scale: (1) Pain 0-10 Scale: 0 Comment: Denies pain. Possible sources of discomfort include prolonged bedbound status; BiPap mask; vascular access lines; beyer catheter; restraints. Currently receiving prn morphine. . . . (2) Dyspnea 0-10 Scale: Unable to quantify Comment: Has transitioned to "comfort measures only." Still on high flow nasal cannula 02 . Morphine/lorazepam available prn. Patient appearing comfortable. . (3) Anxiety 0-10 Scale: Unable to quantify Comment: Now sedated. Has transitioned to "comfort measures only." Morphine/ lorazepam available prn. Patient appearing comfortable. . (4) Depression 0-10 Scale: Unable to quantify Comment: The patient's sister (who she had been living with for many years) about 4 weeks prior to this hospital admission. Patient is now sedated. . . Pertinent Non-Medical Issues Psychosocial: Sister who she lived with for years, about 4 weeks prior to admission. Niece -- Nicole -- is her only remaining close family. Spiritual: Comes from a Spiritism tradition. Most recently belonged to a "spiritual yarsani" in [place], [place] Legal: Has provided a verbal advance directive regarding choice of health care surrogate and health care preferences. Ethical issues impacting care: No known ethical issues. Patient has become incapacitated and is unlikely to regain capacity. . Important Contacts Nicole Jaja (niece and designated health care surrogate) -- . Prognosis Patient is currently in multi-organ failure. Current problems include sepsis; shock requiring pressor support; respiratory failure requiring inadequately helped by BiPAP; a fib with RVR; and failing renal function. 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 Patient has been transtioned to "comfort measures only." Pressors and antibiotics have been discontinued. Anticipate within in hours to a couple of days. . Code Status: No Code Plan == Code Status : NO CODE == Decision maker: Patient has become incapacitated to make her own health care decisions and she is not expected to regain capacity. . She has designated her niece-- Nicolesabrina Connorsherie -- as her health care surrogate. == Goals of medical treatment: Per her conversation earlier today and in agreement with the health care surrogate, goals have transitioned to "comfort measures only." == Pain: Patient now appears comfortable on her comfort medication regimen including morphine and lorazepam. No further recommendations at this time. == Dyspnea: Patient now appears comfortable on her comfort medication regimen including morphine and lorazepam. No further recommendations at this time. == Anxiety: Patient now appears comfortable on her comfort medication regimen including morphine and lorazepam. No further recommendations at this time. == Depression: The patient's sister (with whom she had been living for many years) from breast cancer about 4 weeks prior to this hospital admission. Niece reports that the patient had been quite grief stricken and depressed. Patient now appears comfortable on her comfort medication regimen including morphine and lorazepam. No further recommendations at this time. == Have left message with health care surrogate to call me back. If patient would not want life prolonged at this time, will recommend that we discontinue high-flow 02. Also, will offer hospice services. == Palliative care will continue to follow to assist with symptom management. . Attestation To help prompt me to consider important information that might be impacting today's encounter and assessment, information from prior notes written by myself or my colleagues may have been "brought forward" into today's note. My signature on this note, however, is an attestation that I personally performed the exam, history, and/or decision-making noted today, and, unless otherwise indicated, the interactions with patient, family, and staff as well as the review of records all occurred today. I also attest that the listed assessment and stated plan reflect my best clinical judgment today based on the combination of historical information, prior notes, and today's exam/ interactions. When time spent is documented, it refers only to time spent today by the signer, or if indicated, combined time spent today by collaborating physician/nurse practitioner. Faraz Murillo MD Oct 13, 2016 14:16
[2016-10-16] MEDS ORDERED: VANCOMYCIN TROUGH ONE (22:45)
== END 2016-10-13 11:35 | disposition expired | DRG 871 ==
LOC: PHED 12:07 → PHEDA 14:39 → PHICU 15:55
PROVIDERS: ADMIT Internal Medicine Critical Care Medicine; ATTEND Internal Medicine Critical Care Medicine
PROC: 5A09457 Assistance with Respiratory Ventilation, 24-96 Consecutive Hours, Continuous Positive Airway Pressure (ICD-10-PCS; principal; 2016-10-10)
PROC: 03HY32Z Insertion of Monitoring Device into Upper Artery, Percutaneous Approach (ICD-10-PCS; 2016-10-10)
PROC: 05H533Z Insertion of Infusion Device into Right Subclavian Vein, Percutaneous Approach (ICD-10-PCS; 2016-10-10)
DX: A41.9 Sepsis, unspecified organism (principal); J96.01 Acute respiratory failure with hypoxia; I21.4 Non-ST elevation (NSTEMI) myocardial infarction; R65.21 Severe sepsis with septic shock; J18.9 Pneumonia, unspecified organism; E87.2 Acidosis; I13.0 Hypertensive heart and chronic kidney disease with heart failure and stage 1 through stage 4 chronic kidney disease, or unspecified chronic kidney disease; N17.9 Acute kidney failure, unspecified; D75.1 Secondary polycythemia; I50.9 Heart failure, unspecified; E87.1 Hypo-osmolality and hyponatremia; N39.0 Urinary tract infection, site not specified; N18.3 Chronic kidney disease, stage 3 (moderate); E11.22 Type 2 diabetes mellitus with diabetic chronic kidney disease; E11.65 Type 2 diabetes mellitus with hyperglycemia; I48.91 Unspecified atrial fibrillation; E86.0 Dehydration; E78.5 Hyperlipidemia, unspecified; J44.9 Chronic obstructive pulmonary disease, unspecified; Z87.891 Personal history of nicotine dependence; E86.1 Hypovolemia; Z66 Do not resuscitate; Z51.5 Encounter for palliative care; F41.8 Other specified anxiety disorders; F32.9 Major depressive disorder, single episode, unspecified
CPT/HCPCS: 36556; 36600; 71010; 76775; 76937; 80048; 80053; 81001; 82010; 82533; 82550; 82552; 82570; 82805; 82948; 83036; 83605; 83735; 83880; 83930; 83935; 84100; 84300; 84443; 84484; 84540; 85007; 85027; 85379; 85610; 85730; 87040; 87077; 87186; 87205; 87449; 87641; 93005; 93306; 94002; 94003; 94640; 94664; 94667; 96374; C9113; J0456; J0692; J0696; J1644; J1650; J1940; J1956; J2060; J2270; J2370; J2920; J2930; J3370; J3480; J7042; J7050; J7060; P9045; P9047